=== PATIENT | male | born 1995 | race Caucasian/White ===

== ENCOUNTER 2017-08-04 10:34 | Emergency (ER) | payer OTHER ==
[2017-08-04 10:49] VITALS: BP 123/76; PULSE 67; TEMP 97.8; BMI 37.0
[2017-08-04] MEDS ORDERED: SODIUM CHLORIDE 0.9% 1000 ML INFUS.BAG IV ONE (11:02)
[2017-08-04] MEDS ORDERED: PANTOPRAZOLE SODIUM 40 MG VIAL IVPUSH ONE (11:03)
[2017-08-04] MEDS ORDERED: ONDANSETRON 4 MG/2 ML VIAL IVPB ONE (11:03)
--- NOTE | 2017-08-04 11:06 | PDOC ---
History of Present Illness - General Chief Complaint: Nausea/Vomiting Stated Complaint: NAUSEA/VOMITING Time Seen by Provider: 08/04/17 10:56 History Source: Patient Exam Limitations: No Limitations - History of Present Illness Initial Comments: 08/04/17 11:05 Patient is a [22-year-old male, ambulatory to emergency Department was seen in the emergency department yesterday for nausea vomiting diarrhea with mid abdominal discomfort, labs and CT were performed, results reviewed, no evidence of appendicitis or evidence of acute intra-abdominal pathology. White blood cell count was notably elevated with hypokalemia, otherwise unremarkable Patient was exposed to poorly cooked meat on Sunday and develops symptoms shortly after. While emergency Department was given Zofran, symptoms had seemed to resolve however now returns with increased abdominal pain to midepigastric region, increased vomiting and diarrhea. No fever. Bilious vomiting noted in ER. ] Allergies: No known allergies Medications: [None] Family History: Non-contributory Social History: Smokes Hookah, alcohol use, or IVDU Vital signs on arrival are [notable for pulse of 67.] Review of Systems GENERAL/CONSTITUTIONAL: [No fever or chills. No weakness. No weight change.] HEAD, EYES, EARS, NOSE AND THROAT: [No change in vision. No ear pain or discharge. No sore throat. ] CARDIOVASCULAR: [No chest pain or shortness of breath.] RESPIRATORY: [No cough, wheezing, or hemoptysis.] GASTROINTESTINAL: [Epigastric pain, + nausea, active vomiting, diarrhea or constipation. No rectal bleeding.] GENITOURINARY: [No dysuria, frequency, or change in urination.] MUSCULOSKELETAL: [No joint or muscle swelling or pain. No neck or back pain.] SKIN : [No rash or easy bruising.] NEUROLOGIC: [No headache, vertigo, loss of consciousness, or loss of sensation.] PSYCHIATRIC: [No depression or anxiety.] ENDOCRINE: [No increased thirst. No abnormal weight change.] HEMATOLOGIC/LYMPHATIC: [No anemia, easy bleeding, or history of blood clots.] ALLERGIC/IMMUNOLOGIC: [No hives or skin allergy. No latex allergy.] Physical Exam: GENERAL: [The patient is awake, alert, and fully oriented, in no acute distress. ] EYES: [Pupils equal, round and reactive to light, extraocular movements intact, sclera anicteric, conjunctiva clear.] ENT: [Ears normal, nares patent, oropharynx clear without exudates. Moist mucous membranes. No uvula deviation] NECK: [Normal range of motion, supple without lymphadenopathy, JVD, or masses.] LUNGS: [Breath sounds equal, clear to auscultation bilaterally. No wheezes, and no crackles.] HEART: [Regular rate and rhythm, normal S1 and S2 without murmur, rub or gallop. ] ABDOMEN: [Soft, tender to midepigastric region, normoactive bowel sounds. No guarding, no rebound. No masses. No bruising or abrasions] MUSCULOSKELETAL: [Normal range of motion, no edema. No clubbing or cyanosis. No cords, erythema, or tenderness. No CVA Tenderness with fist palpation.] NEUROLOGICAL: [Cranial nerves II through XII grossly intact. Normal speech, normal gait.] SKIN: [Warm, Dry, normal turgor, no rashes or lesions noted.] Past History - Past Medical History Allergies/Adverse Reactions: Allergies Allergy/AdvReac Type Severity Reaction Status Date / Time No Known Allergies Allergy Verified 08/04/17 10:44 Home Medications: Ambulatory Orders Omeprazole 20 mg PO BID #24 tablet.dr 08/04/17 Ondansetron [Zofran Odt -] 4 mg SL TID #21 od.tablet 08/04/17 COPD: No - Immunization History Immunization Up to Date: Yes - Suicide/Smoking/Psychosocial Hx Smoking History: Never smoked Have you smoked in the past 12 months: No Information on smoking cessation initiated: No Hx Alcohol Use: No Drug/Substance Use Hx: No Substance Use Type: None *Physical Exam - Vital Signs Last Vital Signs Temp Pulse Resp BP Pulse Ox 97.8 F 67 17 123/76 100 08/04/17 10:45 08/04/17 10:45 08/04/17 10:45 08/04/17 10:45 08/04/17 10:45 ED Treatment Course - LABORATORY CBC & Chemistry Diagram: 08/04/17 11:28 08/04/17 11:28 Medical Decision Making - Medical Decision Making 08/04/17 11:15 A/P: Patient here for evaluation of nausea vomiting, diarrhea, mid epigastric pain. Was seen in the emergency department yesterday CT scan of abdomen and pelvis was negative for acute intra-abdominal pathology. White count was significantly elevated with hyperkalemia otherwise unremarkable signs of gastroenteritis versus recent history of eating poorly cooked meat. Plan: CBC, CMP, lipase Normal saline Zofran, Protonix Saline lock 08/04/17 12:29 , White blood cell count is significantly decreased from yesterday Laboratory Results - last 24 hr 08/04/17 08/04/17 08/04/17 11:28 11:28 11:32 WBC 11.9 H RBC 5.32 Hgb 15.0 Hct 44.0 MCV 82.7 MCH 28.2 MCHC 34.0 RDW 12.9 Plt Count 256 MPV 9.1 Neutrophils % 77.9 Lymphocytes % 14.4 Monocytes % 5.3 Eosinophils % 1.9 D Basophils % 0.5 Sodium 141 Potassium 3.4 L Chloride 105 Carbon Dioxide 27 Anion Gap 9 BUN 12 Creatinine 1.0 Creat Clearance w eGFR > 60 Random Glucose 124 H D Calcium 8.7 Total Bilirubin 0.5 AST 33 D ALT 69 Alkaline Phosphatase 96 Total Protein 7.4 Albumin 4.3 Lipase 113 Urine Color Yellow Urine Appearance Slcloudy Urine pH 7.0 Ur Specific [place] 1.020 Urine Protein Negative Urine Glucose (UA) Negative Urine Ketones 1+ H Urine Blood Negative Urine Nitrite Negative Urine Bilirubin Negative Urine Urobilinogen Negative 08/07/17 11:14 Patient reports that he feels better after medication, will DC patient home on omeprazole and Zofran, follow up with PMD in 2 days labs were improved from previous, most likely food poisoning versus gastroenteritis. I discussed the physical exam findings, ancillary test results and final diagnoses with the patient. I answered all of the patient's questions. The patient was satisfied with the care received and felt comfortable with the discharge plan and treatment plan. The patient will call to arrange follow-up and will return to the Emergency Department with any new, persistent or worsening symptoms. *DC/Admit/Observation/Transfer Diagnosis at time of Disposition: Gastroenteritis Food poisoning Qualifiers: Encounter type: initial encounter Injury intent: accidental or unintentional Qualified Code(s): T62.91XA - Toxic effect of unspecified noxious substance eaten as food, accidental (unintentional), initial encounter - Discharge Dispostion Disposition: HOME Condition at time of disposition: Stable Admit: No - Prescriptions Prescriptions: Omeprazole 20 mg PO BID #24 tablet. Ondansetron [Zofran Odt -] 4 mg SL TID #21 od.tablet - Referrals Referrals: Katie Xiao MD [Primary Care Provider] - - Patient Instructions Printed Discharge Instructions: DI for Vomiting -- Adult Additional Instructions: Increase fluids to prevent dehydration, Gatorade, Pedialyte [place] diet, bread, white rice, crackers. Please followup with primary care DrElly in 3 days if symptoms persist Return to emergency department any increased cough, fever, inability to drink or other concerns - Post Discharge Activity Forms/Work/School Notes: Back to Work
[2017-08-04] MEDS ORDERED: ONDANSETRON 4 MG/2 ML VIAL ONE (11:36)
[2017-08-04 11:38] LABS: BASOPHIL 0.5 % (0-2.0); EOSINOPHIL 1.9 % (0-4.5); MCH 28.2 pg (25.7-33.7); MEAN CELL VOLUME 82.7 fl (80-96); MEAN PLT VOLUME 9.1 fl (7.5-11.1); NEUTROPHILS 77.9 % (42.8-82.8); PLATELET COUNT 256 K/MM3 (134-434); RDW 12.9 % (11.9-15.9); WHITE BLOOD COUNT 11.9 K/mm3 (4.0-10.0)
[2017-08-04] MEDS ORDERED: PANTOPRAZOLE SODIUM 40 MG VIAL ONE (11:40)
[2017-08-04 11:44] LABS: URINE APPEARANCE SLCLOUDY; URINE BILIRUBIN NEGATIVE (NEGATIVE); URINE BLOOD NEGATIVE (NEGATIVE); URINE COLOR YELLOW; URINE GLUCOSE (UA) NEGATIVE (NEGATIVE); URINE KETONE 1+ (NEGATIVE); URINE NITRITE NEGATIVE (NEGATIVE); URINE PROTEIN NEGATIVE (NEGATIVE); URINE UROBILINOGEN NEGATIVE mg/dL (0.2-1.0)
[2017-08-04 12:05] LABS: ALBUMIN 4.3 g/dl (3.4-5.0); ANION GAP 9 (8-16); BILIRUBIN,TOTAL 0.5 mg/dL (0.2-1.0); CALCIUM 8.7 mg/dL (8.5-10.1); CO2 27 mmol/L (21-32); GLUCOSE,RANDOM 124 mg/dL (74-106); SGOT/AST 33 U/L (15-37); SGPT/ALT 69 U/L (12-78); TOT PROT 7.4 g/dl (6.4-8.2)
[2017-08-04 12:06] LABS: ALK PHOS 96 U/L (45-117)
[2017-08-04] MEDS ORDERED: MAG HYDROX/AL HYDROX/SIMETH 30 ML UNIT-DOSE CUP PO ONE (13:59)
[2017-08-04] MEDS ORDERED: MAG HYDROX/AL HYDROX/SIMETH 30 ML UNIT-DOSE CUP ONE (14:06)
[2017-08-04 14:08] LABS: URINE LEUK ESTERASE Negative (NEGATIVE)
== END 2017-08-04 15:31 | disposition home or self-care (01) ==
LOC: JER 10:34
DX: K52.9 Noninfective gastroenteritis and colitis, unspecified (principal)
CPT/HCPCS: 36415; 80053; 81003; 83690; 85025; 87086; 99283-25

== ENCOUNTER 2017-08-07 21:18 | Emergency (ER) | payer OTHER ==
[2017-08-07 21:58] VITALS: BMI 37.0
--- NOTE | 2017-08-07 21:59 | PDOC ---
Rapid Medical Evaluation Chief Complaint: Pain Time Seen by Provider: 08/07/17 21:57 Medical Evaluation: Allergies Allergy/AdvReac Type Severity Reaction Status Date / Time No Known Allergies Allergy Verified 08/04/17 10:44 08/07/17 21:57 I have performed a brief in-person evaluation of this patient. The patient presents with a chief complaint of: Severe Epigastric Abdominal Pain Pertinent physical exam findings: Tenderness to Epigastric region I have ordered the following: CBC, BMP, Hepatic Function Profile, UA, U/S Gall Bladder The patient will proceed to the ED for further evaluation. This is patients' 3rd time to ED for Abdominal Pain he reports. Discharge Disposition - Referrals Referrals: Katie Xiao MD [Primary Care Provider] - - Patient Instructions - Post Discharge Activity
[2017-08-07 22:20] LABS: BASOPHIL 0.9 % (0-2.0); EOSINOPHIL 1.3 % (0-4.5); MCH 28.6 pg (25.7-33.7); MEAN CELL VOLUME 81.7 fl (80-96); MEAN PLT VOLUME 9.3 fl (7.5-11.1); NEUTROPHILS 70.5 % (42.8-82.8); PLATELET COUNT 339 K/MM3 (134-434); RDW 12.6 % (11.9-15.9); WHITE BLOOD COUNT 15.4 K/mm3 (4.0-10.0)
[2017-08-07 23:29] LABS: ALBUMIN 4.6 g/dl (3.4-5.0); ALK PHOS 96 U/L (45-117); AMYLASE 49 U/L (25-115); ANION GAP 11 (8-16); BILIRUBIN,DIRECT 0.2 mg/dL (0.0-0.2); BILIRUBIN,TOTAL 0.6 mg/dL (0.2-1.0); CALCIUM 9.4 mg/dL (8.5-10.1); CO2 29 mmol/L (21-32); CREATININE 0.9 mg/dL (0.7-1.3); GLUCOSE,RANDOM 101 mg/dL (74-106); SGOT/AST 21 U/L (15-37); SGPT/ALT 74 U/L (12-78); TOT PROT 7.7 g/dl (6.4-8.2)
[2017-08-08] MEDS ORDERED: PANTOPRAZOLE SODIUM 40 MG in SODIUM CHLORIDE 100 ML IVPB ONE (01:19)
[2017-08-08] MEDS ORDERED: ONDANSETRON 4 MG/2 ML VIAL IVPUSH ONE (01:19)
[2017-08-08] MEDS ORDERED: SODIUM CHLORIDE 1,000 ML IV STA (01:19)
[2017-08-08] MEDS ORDERED: ONDANSETRON 4 MG/2 ML VIAL ONE (01:43)
[2017-08-08] MEDS ORDERED: PANTOPRAZOLE SODIUM 40 MG VIAL ONE (01:43)
[2017-08-08 02:21] LABS: PH,URINE 6.5 (5.0-8.0); URINE APPEARANCE CLEAR; URINE BILIRUBIN 1+ (NEGATIVE); URINE BLOOD TRACE-INTA (NEGATIVE); URINE COLOR LT. YELLOW; URINE GLUCOSE (UA) NEGATIVE (NEGATIVE); URINE KETONE 2+ (NEGATIVE); URINE NITRITE NEGATIVE (NEGATIVE); URINE PROTEIN TRACE (NEGATIVE)
--- NOTE | 2017-08-08 03:29 | PDOC ---
History of Present Illness - General Chief Complaint: Pain Stated Complaint: STOMACH PAIN Time Seen by Provider: 08/07/17 21:57 History Source: Patient, Family Exam Limitations: No Limitations - History of Present Illness Travel History: No Initial Comments: 08/08/17 03:24 22yo Male patient with no significant past medical history presents to ED c/o abdominal pain, n/v/d. Patient was seen on 08-03 and 08-04 at this hospital. Patient was seen at [facility] 08-02 for same symptoms. He returns today with no resolution in abdominal pain, n/v/d. Patient denies CP, back pain , fever, cough, congestion or any other complaints at this time. Timing/Duration: reports: constant. denies: changing over time, intermittent, resolved prior to arrival, gone now, other Quality: reports: moderate, cramping. denies: mild, severe, aching, burning, dullness, fullness, sharpness, stabbing, throbbing, other Abdominal Pain Onset Location: reports: epigastric. denies: RUQ, LUQ, RLQ, LLQ , periumbilical, suprapubic, generalized abdomen, flank, unknown, other Pain Radiation: reports: no radiation. denies: RUQ, LUQ, RLQ, LLQ, epigastric, periumbilical, flank, groin, scapula, shoulder, chest, back, other Activities at Onset: reports: no specific activity. denies: none, exertion, emotional upset, rest, sleep, eating, working, sexual intercourse, other Treatment Prior to Arrive: improves with: analgesics. worse with: antacids, cold pack, heat, laxative, enema, other Past History - Travel Traveled outside of the country in the last 30 days: No Close contact w/someone who was outside of country & ill: No - Past Medical History Allergies/Adverse Reactions: Allergies Allergy/AdvReac Type Severity Reaction Status Date / Time No Known Allergies Allergy Verified 08/04/17 10:44 Home Medications: Ambulatory Orders Famotidine [Pepcid -] 40 mg PO DAILY #30 tablet 08/08/17 Tramadol HCl 50 mg PO Q6H PRN #16 tablet MDD 4 tabs 08/08/17 COPD: No - Immunization History Immunization Up to Date: Yes - Suicide/Smoking/Psychosocial Hx Smoking History: Never smoked Have you smoked in the past 12 months: No Information on smoking cessation initiated: No Hx Alcohol Use: No Drug/Substance Use Hx: No Substance Use Type: None Abd/GI Specific PMHX - Complaint Specific PMHX Colitis: No Diverticulitis: No Gall Bladder Disease: No GERD: No Hepatitis: No Irritable Bowel Synd (IBS): No Pancreatitis: No GI Ulcer Disease: No Review of Systems - Review of Systems Able to Perform ROS?: Yes Is the patient limited Danish proficient: No Constitutional: No: Chills, Fever ABD/GI: Yes: Diarrhea, Nausea, Vomiting, Abdominal cramping (Epigastric) All Other Systems: Reviewed and Negative *Physical Exam - Vital Signs Last Vital Signs Temp Pulse Resp BP Pulse Ox 98.3 F 73 20 147/92 100 08/07/17 21:53 08/07/17 21:53 08/07/17 21:53 08/07/17 21:53 08/07/17 21:53 - Physical Exam General Appearance: Yes: Nourished, Appropriately Dressed, Moderate Distress. No: Apparent Distress, Mild Distress, Severe Distress Neck: positive: Trachea midline, Supple. negative: Normal Thyroid, Rigid, Stridor, Lymphadenopathy (R), Lymphadenopathy (L), Tender lateral Respiratory/Chest: positive: Lungs Clear, Normal Breath Sounds. negative: Chest Tender, Respiratory Distress, Accessory Muscle Use, Labored Respiration, Rapid RR, Paradoxal Breathing, Crackles, Rhonchi, Stridor, Wheezing Cardiovascular: positive: Regular Rhythm, Regular Rate Gastrointestinal/Abdominal: positive: Tender, Soft, Increased Bowel Sounds, Tenderness (Epigastric region.). negative: Normal Bowel Sounds, Distended, Guarding, Rebound, Hernia Rectal Exam: positive: heme negative stool, normal exam Musculoskeletal: positive: Normal Inspection. negative: CVA Tenderness, Decreased Range of Motion, Vertebral Tenderness Extremity: positive: Normal Capillary Refill, Normal Inspection, Normal Range of Motion. negative: Pedal Edema, Swelling, Calf Tenderness, Erythema, Inflammation Integumentary: positive: Normal Color, Dry, Warm Neurologic: positive: school library media specialist II-XII NML intact, Fully Oriented, Alert, Normal Mood/ Affect, Normal Response, Motor Strength 5/5 ED Treatment Course - LABORATORY CBC & Chemistry Diagram: 08/07/17 22:00 08/07/17 21:56 - ADDITIONAL ORDERS Additional order review: Laboratory Results 08/08/17 08/07/17 02:07 21:56 Sodium 138 Potassium 3.3 L Chloride 98 Carbon Dioxide 29 Anion Gap 11 BUN 9 D Creatinine 0.9 Random Glucose 101 Calcium 9.4 Total Bilirubin 0.6 Direct Bilirubin 0.2 AST 21 D ALT 74 Alkaline Phosphatase 96 Total Protein 7.7 Albumin 4.6 Total Amylase 49 Lipase 88 Urine Color Lt. yellow Urine Appearance Clear Urine pH 6.5 Ur Specific [place] 1.025 Urine Protein Trace H Urine Glucose (UA) Negative Urine Ketones 2+ H Urine Blood Trace-inta Urine Nitrite Negative Urine Bilirubin 1+ H Urine Urobilinogen 1.0 08/07/17 22:00 RBC 5.61 H MCV 81.7 MCHC 35.0 RDW 12.6 MPV 9.3 Neutrophils % 70.5 Lymphocytes % 19.4 D Monocytes % 7.9 Eosinophils % 1.3 Basophils % 0.9 - RADIOLOGY Radiology Studies Ordered: Category Date Time Status CHEST CT WITH CONTRAST [CT] Stat CT Scan 08/08/17 01:17 Ordered GALLBLADDER US [US] Stat Ultrasound 08/08/17 21:56 Taken - Medications Given in the ED: ED Medications Discontinued Medications Generic Name Dose Route Start Last Admin Trade Name Freq PRN Reason Stop Dose Admin Pantoprazole Sodium 40 mg/ 100 mls @ 200 mls/hr 08/08/17 01:19 08/08/17 02:08 Sodium Chloride IVPB 08/08/17 01:48 200 mls/hr ONCE ONE Administration Sodium Chloride 1,000 mls @ 1,000 mls/hr 08/08/17 01:19 08/08/17 02:08 Normal Saline - IV 08/08/17 02:18 1,000 mls/hr ASDIR STA Administration Ondansetron HCl 4 mg 08/08/17 01:19 08/08/17 02:08 Zofran Injection IVPUSH 08/08/17 01:20 4 mg ONCE ONE Administration *DC/Admit/Observation/Transfer Diagnosis at time of Disposition: Abdominal pain Qualifiers: Abdominal location: epigastric Qualified Code(s): R10.13 - Epigastric pain - Discharge Dispostion Disposition: HOME Condition at time of disposition: Improved Admit: No - Prescriptions Prescriptions: Famotidine [Pepcid -] 40 mg PO DAILY #30 tablet Tramadol HCl 50 mg PO Q6H PRN #16 tablet MDD 4 tabs PRN Reason: Moderate to Severe Pain - Referrals Referrals: Katie Xiao MD [Primary Care Provider] - William Saini MD [Staff Physician] - - Patient Instructions Printed Discharge Instructions: DI for Abdominal Pain-Adult Additional Instructions: Follow up with Dr. Saini (Gastroenterology) next week, call to schedule appointment. Take medications as prescribed. Do not drive, drink alcohol, or operate heavy machinery while taking Tramadol. Be sure to also follow up with your primary care doctor. Print Language: FRISIAN - Post Discharge Activity
[2017-08-08 05:15] VITALS: BP 140/88; PULSE 70; TEMP 98.2
[2017-08-08 08:57] LABS: URINE LEUK ESTERASE Negative (NEGATIVE)
== END 2017-08-08 05:19 | disposition home or self-care (01) ==
LOC: JER 21:18
PROC: 3E033GC Introduction of Other Therapeutic Substance into Peripheral Vein, Percutaneous Approach (ICD-10-PCS; principal; 2017-08-07)
PROC: 3E033GC Introduction of Other Therapeutic Substance into Peripheral Vein, Percutaneous Approach (ICD-10-PCS; 2017-08-07)
DX: R10.13 Epigastric pain (principal)
CPT/HCPCS: 36415; 71260-TC; 76705-TC; 80048; 80076; 81003; 82150; 83690; 85025; 96365; 96375; 99282-25

== ENCOUNTER 2017-12-13 17:39 | Emergency (ER) | payer OTHER ==
--- NOTE | 2017-12-13 17:53 | PDOC ---
Rapid Medical Evaluation Chief Complaint: Nausea/Vomiting Time Seen by Provider: 12/13/17 17:51 Medical Evaluation: Allergies Allergy/AdvReac Type Severity Reaction Status Date / Time No Known Allergies Allergy Verified 08/04/17 10:44 12/13/17 17:51 I have performed a brief in-person evaluation of this patient. The patient presents with a chief complaint of: abdominal pain since this morning, 7 episodes of vomiting since this morning, 4-5 episodes of diarrhea, subjective fever Pertinent physical exam findings: well appearing I have ordered the following: labs The patient will proceed to the ED for further evaluation. Discharge Disposition - Diagnosis Abdominal pain, Vomiting and diarrhea - Referrals - Patient Instructions - Post Discharge Activity
[2017-12-13 17:55] VITALS: BP 117/82; PULSE 64; TEMP 97.5; BMI 37.0
[2017-12-13 18:43] LABS: BASO % 0.4 % (0-2.0); EOS % 0.1 % (0-4.5); HEMATOCRIT 45.4 % (35.4-49); HEMOGLOBIN 15.6 GM/dL (11.7-16.9); MCH 28.8 pg (25.7-33.7); MCHC 34.4 g/dl (32.0-35.9); MEAN CELL VOLUME 83.9 fl (80-96); MEAN PLT VOLUME 9.8 fl (7.5-11.1); NEUT % 87.5 % (42.8-82.8); PLATELET COUNT 298 K/MM3 (134-434); RBC 5.42 M/mm3 (4.00-5.60); RDW 13.2 % (11.9-15.9); WHITE BLOOD COUNT 13.9 K/mm3 (4.0-10.0)
[2017-12-13 19:07] LABS: ALBUMIN 4.5 g/dl (3.4-5.0); ANION GAP 10 (8-16); BLOOD UREA NITROGEN 13 mg/dL (7-18); CALCIUM 9.4 mg/dL (8.5-10.1); CHLORIDE 104 mmol/L (98-107); CO2 26 mmol/L (21-32); CREATININE 0.8 mg/dL (0.7-1.3); GLUCOSE,RANDOM 145 mg/dL (74-106); POTASSIUM 4.2 mmol/L (3.5-5.1); SGOT/AST 26 U/L (15-37); SGPT/ALT 72 U/L (12-78); SODIUM 140 mmol/L (136-145)
[2017-12-13 19:09] LABS: ALK PHOS 121 U/L (45-117); BILIRUBIN,TOTAL 0.4 mg/dL (0.2-1.0); TOT PROT 7.9 g/dl (6.4-8.2)
--- NOTE | 2017-12-13 19:50 | PDOC ---
History of Present Illness - General History Source: Patient Exam Limitations: No Limitations - History of Present Illness Initial Comments: 12/13/17 20:57 Patient is a 22 year old male with a significant past medical history of GERD, who presents to the ED with complaints of nausea and yellow colored vomiting that began this morning. Patient reports experiencing multiple episodes of nausea and vomiting that began this morning while at home and has shown no signs of subsiding, prompting him to come into the ED for further evaluation. He reports experiencing associated symptoms of diarrhea, stating he's has had 4 episodes of loose watery stool since waking up this morning. Patient states experiencing similar symptoms 4 months ago with all tests being negative. He reports experiencing associated epigastric pain that he states is a 8/10 pain that increases with inspiration. Denies chest pain, Sob. Denies contact with sick individuals, out of state travelling. Denies change in appetite. Denies any other symptoms. Allergies: None Social history: No smoking. No alcohol. No illicit drugs. Surgical history: None PMD:Dr. Katie Xiao. <Juan Chou - Last Filed: 12/13/17 20:57> - General History Source: Patient <Matthew Tomas - Last Filed: 12/13/17 22:23> - General Chief Complaint: Nausea/Vomiting Stated Complaint: NAUSEA/VOMITING Time Seen by Provider: 12/13/17 17:51 Past History <Juan Chou - Last Filed: 12/13/17 20:57> - Past Medical History COPD: No - Immunization History Immunization Up to Date: Yes - Suicide/Smoking/Psychosocial Hx Smoking History: Never smoked Have you smoked in the past 12 months: No Hx Alcohol Use: No Drug/Substance Use Hx: No Substance Use Type: None <Matthew Tomas - Last Filed: 12/13/17 22:23> - Past Medical History Allergies/Adverse Reactions: Allergies Allergy/AdvReac Type Severity Reaction Status Date / Time No Known Allergies Allergy Verified 12/13/17 17:55 Home Medications: Ambulatory Orders Famotidine [Pepcid -] 40 mg PO DAILY #30 tablet 08/08/17 Famotidine [Pepcid] 40 mg PO DAILY #30 tablet 08/08/17 Tramadol HCl 50 mg PO Q6H PRN #16 tablet MDD 4 tabs 08/08/17 Tramadol HCl 50 mg PO Q6H PRN #16 tablet MDD 4 tabs 08/08/17 Ondansetron [Zofran *Odt*] 4 mg SL TID #30 od.tablet 12/13/17 Review of Systems - Review of Systems Able to Perform ROS?: Yes Comments:: 12/13/17 20:57 CONSTITUTIONAL: Absent: fever, no chills, no fatigue EYES: Absent: visual changes ENT: Absent: ear pain, no sore throat CARDIOVASCULAR: Absent: chest pain, no palpitations RESPIRATORY: Absent: cough, no SOB GI: +Epigastric pain, +Nausea. +Vomiting. Absent: no constipation, no diarrhea GENITOURINARY: Absent: dysuria, no frequency, no hematuria MUSCULOSKELETAL: Absent: back pain, no arthralgia, no myalgia SKIN: Absent: rash <Juan Chou - Last Filed: 12/13/17 20:57> *Physical Exam - Vital Signs Last Vital Signs Temp Pulse Resp BP Pulse Ox 97.5 F L 64 18 117/82 100 12/13/17 17:51 12/13/17 17:51 12/13/17 17:51 12/13/17 17:51 12/13/17 17:51 - Physical Exam Comments: 12/13/17 20:57 GENERAL: Well-appearing, well-nourished. No apparent distress. HEENT: Normocephalic, atraumatic. PERRL, EOM intact. CARDIOVASCULAR: Normal S1, S2. Regular rate and rhythm. PULMONARY: Clear to auscultation bilaterally. ABDOMEN: Soft, non-distended, non-tender. EXTREMITIES: Normal ROM in all four extremities. No gross deformities. SKIN: Warm, dry. No rash NEUROLOGICAL: No focal neurological deficits. <Juan Chou - Last Filed: 12/13/17 20:57> - Vital Signs Last Vital Signs Temp Pulse Resp BP Pulse Ox 97.5 F L 64 18 117/82 100 12/13/17 17:51 12/13/17 17:51 12/13/17 17:51 12/13/17 17:51 12/13/17 17:51 <Matthew Tomas - Last Filed: 12/13/17 22:23> ED Treatment Course - LABORATORY CBC & Chemistry Diagram: 12/13/17 18:17 12/13/17 18:17 - ADDITIONAL ORDERS Additional order review: Laboratory Results 12/13/17 12/13/17 18:17 18:17 Sodium 140 Potassium 4.2 D Chloride 104 Carbon Dioxide 26 Anion Gap 10 BUN 13 D Creatinine 0.8 Creat Clearance w eGFR > 60 Random Glucose 145 H D Calcium 9.4 Total Bilirubin 0.4 D AST 26 D ALT 72 Alkaline Phosphatase 121 H D Total Protein 7.9 Albumin 4.5 Lipase 50 L 12/13/17 18:17 RBC 5.42 MCV 83.9 MCHC 34.4 RDW 13.2 MPV 9.8 Neutrophils % 87.5 H D Lymphocytes % 9.0 D Monocytes % 3.0 L Eosinophils % 0.1 D Basophils % 0.4 <Juan Chou - Last Filed: 12/13/17 20:57> - LABORATORY CBC & Chemistry Diagram: 12/13/17 18:17 12/13/17 18:17 - ADDITIONAL ORDERS Additional order review: Laboratory Results 12/13/17 12/13/17 18:17 18:17 Sodium 140 Potassium 4.2 D Chloride 104 Carbon Dioxide 26 Anion Gap 10 BUN 13 D Creatinine 0.8 Creat Clearance w eGFR > 60 Random Glucose 145 H D Calcium 9.4 Total Bilirubin 0.4 D AST 26 D ALT 72 Alkaline Phosphatase 121 H D Total Protein 7.9 Albumin 4.5 Lipase 50 L 12/13/17 18:17 RBC 5.42 MCV 83.9 MCHC 34.4 RDW 13.2 MPV 9.8 Neutrophils % 87.5 H D Lymphocytes % 9.0 D Monocytes % 3.0 L Eosinophils % 0.1 D Basophils % 0.4 <Matthew Tomas - Last Filed: 12/13/17 22:23> Medical Decision Making - Medical Decision Making 12/13/17 22:19 Dr. Tomas: The scribe's documentation has been prepared under my direction and personally reviewed by me in its entirery. I confirm that the note above accurately reflects all work, treatment, procedures, and medical decision making performed by me. patient tolerated by mouth fluid after IVF hydration. Pt will be discharged to follow up with his pcp as needed. Zofran 4mg ODT sent to pharmacy <Matthew Tomas - Last Filed: 12/13/17 22:23> *DC/Admit/Observation/Transfer - Attestations Scribe Attestion: 12/13/17 20:57 Documentation prepared by Juan Chou, acting as certified medical technician assistant for Matthew Tomas MD/DO. <Juan Chou - Last Filed: 12/13/17 20:57> - Discharge Dispostion Admit: No <Matthew Tomas - Last Filed: 12/13/17 22:23> Diagnosis at time of Disposition: Abdominal pain, Vomiting and diarrhea - Discharge Dispostion Disposition: HOME Condition at time of disposition: Stable - Prescriptions Prescriptions: Ondansetron [Zofran *Odt*] 4 mg SL TID #30 od.tablet - Referrals Referrals: Katie Xiao MD [Primary Care Provider] - - Patient Instructions Printed Discharge Instructions: DI for Nausea -- Adult, DI for Vomiting -- Adult Additional Instructions: drink plenty of fluids so you dont become dehydrated. Take medication as directed. - Post Discharge Activity
[2017-12-13] MEDS ORDERED: SODIUM CHLORIDE 1,000 ML IV STA (19:55)
[2017-12-13] MEDS ORDERED: FAMOTIDINE 20 MG/50 ML IVPB 20 MG in PREMIX 50 IVPB ONE (19:55)
[2017-12-13] MEDS ORDERED: ONDANSETRON 4 MG/2 ML VIAL IVPUSH STA (19:55)
[2017-12-13] MEDS ORDERED: FAMOTIDINE 20 MG/50 ML IVPB 20 MG/50 ML MG IVPB ONE (20:54)
[2017-12-13] MEDS ORDERED: ONDANSETRON 4 MG/2 ML VIAL ONE (20:54)
== END 2017-12-13 22:27 | disposition home or self-care (01) ==
LOC: JER 17:39
PROC: 3E033GC Introduction of Other Therapeutic Substance into Peripheral Vein, Percutaneous Approach (ICD-10-PCS; principal; 2017-12-13)
PROC: 3E033GC Introduction of Other Therapeutic Substance into Peripheral Vein, Percutaneous Approach (ICD-10-PCS; 2017-12-13)
DX: R10.10 Upper abdominal pain, unspecified (principal); R11.2 Nausea with vomiting, unspecified; R19.7 Diarrhea, unspecified
CPT/HCPCS: 36415; 80053; 83690; 85025; 99283-25; J7030

== ENCOUNTER 2017-12-14 12:19 | Inpatient (IN) | payer OTHER ==
[2017-12-14 12:33] VITALS: BMI 34.7
--- NOTE | 2017-12-14 12:47 | PDOC ---
History of Present Illness - General Chief Complaint: Pain, Acute Stated Complaint: ABD PAIN Time Seen by Provider: 12/14/17 12:47 - History of Present Illness Initial Comments: 22 year old male with PMH of frequent admission for abdominal pains presenting with abdominal pains and N/V/D. Patient has had multiple episodes of NBNB vomiting/ nausea and non bloody diarrhea with sharp epigastric abdominal pain over the past few days. He was seen in our ED last night with normal labs and sent home with Zofran. He then saw Dr. Barraza this AM and he felt he should come to the ED. He was seen 4 months prior for a similar episode and CT and Ultrasound were negative for gallbladder or abdominal pathology. 12/14/17 13:31 Past History - Past Medical History Allergies/Adverse Reactions: Allergies Allergy/AdvReac Type Severity Reaction Status Date / Time No Known Allergies Allergy Verified 12/14/17 12:30 Home Medications: Ambulatory Orders Ondansetron [Zofran *Odt*] 4 mg SL TID #30 od.tablet 12/13/17 COPD: No - Immunization History Immunization Up to Date: Yes - Suicide/Smoking/Psychosocial Hx Smoking History: Never smoked Have you smoked in the past 12 months: No Information on smoking cessation initiated: No Hx Alcohol Use: No Drug/Substance Use Hx: No Substance Use Type: None Review of Systems - Review of Systems Constitutional: Yes: Loss of Appetite. No: Chills, Diaphoresis, Fever HEENTM: No: Recent change in vision, Double Vision Respiratory: No: Cough, Shortness of Breath Cardiac (ROS): No: Edema, Irregular Heart Rate, Syncope, Chest Tightness ABD/GI: Yes: Nausea, Poor Appetite, Vomiting. No: Abdominal Distended, Constipated : No: Dysuria, Discharge, Frequency Integumentary: No: Bruising, Change in Color, Flushing, Lesions, Lumps Neurological: No: Headache, Numbness, Paresthesia Psychiatric: No: Anxiety, Depression *Physical Exam - Vital Signs Last Vital Signs Temp Pulse Resp BP Pulse Ox 98.3 F 73 16 117/93 98 12/14/17 12:30 12/14/17 12:30 12/14/17 12:30 12/14/17 12:30 12/14/17 12:30 - Physical Exam General Appearance: Yes: Nourished, Appropriately Dressed. No: Apparent Distress HEENT: positive: EOMI, NEW, Normal ENT Inspection, Normal Voice, Symmetrical Neck: positive: Trachea midline, Normal Thyroid, Supple. negative: Tender, Rigid Respiratory/Chest: positive: Lungs Clear, Normal Breath Sounds, Accessory Muscle Use. negative: Chest Tender, Respiratory Distress Cardiovascular: positive: Regular Rhythm, Regular Rate Gastrointestinal/Abdominal: positive: Normal Bowel Sounds, Tender (TTP in epgiastrium), Flat, Soft Extremity: positive: Normal Capillary Refill, Normal Inspection, Normal Range of Motion. negative: Tender Integumentary: positive: Normal Color, Dry, Warm Neurologic: positive: Fully Oriented, Alert, Normal Mood/Affect, Normal Response , Motor Strength 01/12 ED Treatment Course - LABORATORY CBC & Chemistry Diagram: 12/14/17 13:37 12/14/17 13:37 Medical Decision Making - Medical Decision Making 22 year odl non drinking male with multiple episodes of abdominal pain over the past 4 months and previous labs + imaging negative. His n/V/D and abd pain were originally concerning for a viral gastroenteritis given previous negative workup but his lipase returned elevated to 569 (previous levels recorded were WNL) and patient's pain remained despite GI cocktail and fluids. Patient sent to [facility] and admitted to [facility] for pancreatitis with Madi as GI . 12/14/17 15:32 *DC/Admit/Observation/Transfer Diagnosis at time of Disposition: Pancreatitis Qualifiers: Chronicity: acute Pancreatitis type: other Acute pancreatitis complication: unspecified Qualified Code(s): K85.80 - Other acute pancreatitis without necrosis or infection - Discharge Dispostion Condition at time of disposition: Improved Admit: Yes - Referrals - Patient Instructions - Post Discharge Activity
[2017-12-14] MEDS ORDERED: MAG HYDROX/AL HYDROX/SIMETH 30 ML UNIT-DOSE CUP PO ONE (13:31)
[2017-12-14] MEDS ORDERED: LIDOCAINE VISCOUS 2% ORAL/TOP 20 ML UNIT-DOSE CUP MM ONE (13:31)
[2017-12-14] MEDS ORDERED: ONDANSETRON 4 MG/2 ML VIAL IVPUSH ONE (13:31)
[2017-12-14] MEDS ORDERED: MAG HYDROX/AL HYDROX/SIMETH 30 ML UNIT-DOSE CUP ONE (13:32)
[2017-12-14] MEDS ORDERED: ONDANSETRON 4 MG/2 ML VIAL ONE (13:33)
[2017-12-14] MEDS ORDERED: FAMOTIDINE IV 20 MG/12 ML VIAL IVPUSH ONE (13:40)
[2017-12-14] MEDS ORDERED: LIDOCAINE VISCOUS 2% ORAL/TOP 20 ML UNIT-DOSE CUP ONE (13:40)
[2017-12-14] MEDS ORDERED: FAMOTIDINE 20 MG/50 ML IVPB 20 MG/50 ML MG IVPB ONE (13:42)
[2017-12-14 14:04] LABS: HEMATOCRIT 45.2 % (35.4-49); HEMOGLOBIN 15.5 GM/dL (11.7-16.9); MCH 28.8 pg (25.7-33.7); MCHC 34.2 g/dl (32.0-35.9); MEAN CELL VOLUME 84.2 fl (80-96); MEAN PLT VOLUME 9.9 fl (7.5-11.1); PLATELET COUNT 279 K/MM3 (134-434); RBC 5.37 M/mm3 (4.00-5.60); RDW 13.5 % (11.9-15.9); WHITE BLOOD COUNT 12.5 K/mm3 (4.0-10.0)
[2017-12-14 14:19] LABS: ALBUMIN 4.4 g/dl (3.4-5.0); AMYLASE 123 U/L (25-115); ANION GAP 8 (8-16); BLOOD UREA NITROGEN 14 mg/dL (7-18); CALCIUM 9.5 mg/dL (8.5-10.1); CHLORIDE 104 mmol/L (98-107); CO2 29 mmol/L (21-32); CREATININE 0.8 mg/dL (0.7-1.3); GLUCOSE,RANDOM 112 mg/dL (74-106); POTASSIUM 3.8 mmol/L (3.5-5.1); SGOT/AST 30 U/L (15-37); SGPT/ALT 66 U/L (12-78); SODIUM 141 mmol/L (136-145)
[2017-12-14 14:21] LABS: ALK PHOS 114 U/L (45-117); BILIRUBIN,TOTAL 0.5 mg/dL (0.2-1.0); LIPASE 569 U/L (73-393); TOT PROT 7.8 g/dl (6.4-8.2)
[2017-12-14] MEDS ORDERED: morphine CARPU-JECT 2 MG/1 ML DISP.SYRIN IVPUSH ONE (14:36)
--- NOTE | 2017-12-14 14:36 | PDOC ---
Attending Attestation - Resident Resident Name: Gilda An - ED Attending Attestation I have performed the following: I have examined & evaluated the patient, The case was reviewed & discussed with the resident, I agree w/resident's findings & plan, Exceptions are as noted - HPI HPI: 12/14/17 14:34 The patient is a 22 year old male with no significant past medical history who returns to the ED for one day of epigastric pain. He was seen in the ED last night for the epigastric pain with nausea, NBNB vomiting, and loose stools. Epigastric pain does not radiate to the back. CBC and CMP were obtained in the ED and he was discharged home with PO Zofran after he felt better. He returns to the ED today for persistence of his symptoms. He states he was not yet able to fill his Zofran prescription. He does report experiencing intermittent abdominal pain for the past four months. Was at Dr. Barraza's office today but sent to ED for vomiting. No fever or chills. No chest pain or shortness of breath. - Physicial Exam PE: 12/14/17 14:35 "GENERAL: Awake, alert, and fully oriented, in no acute distress HEAD: No signs of trauma EYES: PERRLA, EOMI, sclera anicteric, conjunctiva clear ENT: Auricles normal inspection, hearing grossly normal, nares patent, oropharynx clear without exudates. Moist mucosa NECK: Nontender, no stepoffs, Normal ROM, supple, no lymphadenopathy, JVD, or masses LUNGS: Breath sounds equal, clear to auscultation bilaterally. No wheezes, and no crackles HEART: Regular rate and rhythm, normal S1 and S2, no murmurs, rubs or gallops ABDOMEN: + epigastric TTP, normoactive bowel sounds. No guarding, no rebound. No masses EXTREMITIES: Normal range of motion, no edema. No clubbing or cyanosis. No cords, erythema, or tenderness NEUROLOGICAL: Cranial nerves II through XII intact. 5/5 strength and sensation in all extremities, Normal speech, normal gait, normal cerebellar function SKIN: Warm, Dry, normal turgor, no rashes or lesions noted. " - Medical Decision Making 12/14/17 14:35 22 M with epigastric pain. Suspect gastritis. Pt was seen here yesterday and had normal labs. - Labs - GI cocktail - Reassess 12/14/17 14:54 Lipase elevated >500, consistent with acute pancreatitis. Will order RUQ nasreeno at this time. Admit to Dr. Gómez
[2017-12-14] MEDS ORDERED: morphine SULFATE 4 MG/ML VIAL ONE ×2 (14:53→16:03)
[2017-12-14 15:09] LABS: CHOLESTEROL 152 mg/dL (50-200); TRIGLYCERIDES 117 mg/dL (35-160)
[2017-12-14] MEDS ORDERED: morphine CARPU-JECT 4 MG/1 ML DISP.SYRIN IVPUSH ONE (15:59)
--- NOTE | 2017-12-14 16:51 | CON.GI ---
Consult Consult Specialty:: GI: Dr. Isbell for Dr. David Referred by:: Dr. Gómez Reason for Consultation:: Abdominal pain, nausea/vomiting - History of Present Illness Chief Complaint: N/V/D and abdominal pain History of Present Illness: 22M admitted through [facility] ER for evaluation of N/V/D and abdominal pain. He states that his problems started yesterday, was intermittent in nature. It persisted, saw Dr. David in office where Gi vomited and was sent to the ER. Triage vitals signs were stable. he was not febrile, tachycardic or hypotensive. The vomiting was described as non-bloody, bilious at times. The diarrhea was described as loose non-bloody stool. Similar symptoms occurred in 07/27 that led to an ER visit at [facility]. w/u included blood work that revealed a mild leukocytosis, contrast CT scan of the abdomen that revealed only fatty liver (a diagnosis Gi is aware of since age 15. He has lost 30 pounds intentionally due to this) and an abdominal US that revealed fatty liver and normal biliary tract. He denies recent travel, sick contacts, change in diet, abx use, fevers/chills. He thinks he may have had another episode like this 3 years ago. Upon discussing further, Gi smoked 4-5 Marijuana Joints daily and warm showers seem to improve his symptoms. There is no family history of colorectal cancer / IBD. His last episode of vomiting was this morning when he saw Dr. David. - History Source History Provided By: Patient Limitations to Obtaining History: No Limitations - Past Medical History Hepatobiliary: Yes: Other (Fatty Liver) - Past Surgical History Additional Surgical History: Denies - Alcohol/Substance Use Hx Alcohol Use: Yes (1-2 shots per week) History of Substance Use: reports: Marijuana (4-5 joints per day) - Smoking History Smoking history: Never smoked Have you smoked in the past 12 months: No - Social History Usual Living Arrangement: Other (With family) Place of : [facility] History of Recent Travel: No Home Medications - Allergies Allergies/Adverse Reactions: Allergies Allergy/AdvReac Type Severity Reaction Status Date / Time No Known Allergies Allergy Verified 12/14/17 12:30 - Home Medications Home Medications: Ambulatory Orders Ondansetron [Zofran *Odt*] 4 mg SL TID #30 od.tablet 12/13/17 Family Disease History - Family Disease History Family Disease History: Other: Father (Alive: Heavy ETOH consumption), Mother ( Alive: healthy), Sister (3, healthy), Son (None), Daughter (None) Other Family History: No family history of colorectal cancer or other GI malignancy Review of Systems - Review of Systems Constitutional: reports: Diaphoresis. denies: Chills, Fever, Loss of Appetite Cardiovascular: denies: Chest Pain, Palpitations, Shortness of Breath Respiratory: denies: Cough, SOB Gastrointestinal: reports: Abdominal Pain, Diarrhea, Nausea, Vomiting. denies: Constipation, Dysphagia, Melena, Rectal Bleeding, Vomiting Blood Physical Exam-GI Vital Signs: Vital Signs Temperature 98.4 F 12/14/17 16:08 Pulse Rate 78 12/14/17 16:08 Respiratory Rate 17 12/14/17 16:08 Blood Pressure 127/83 12/14/17 16:08 O2 Sat by Pulse Oximetry (%) 98 12/14/17 16:08 Constitutional: Yes: Calm Eyes: No: Sclera Icterus Cardiovascular: Yes: Regular Rate and Rhythm. No: Murmur Respiratory: Yes: CTA Bilaterally Gastrointestinal Inspection: No: Distention, Scars ...Auscultate: Yes: Normoactive Bowel Sounds ...Palpate: Yes: Soft, Tenderness (Mild TTP mid abdomen). No: Guarding, Hepatomegaly, Splenomegaly ...Percussion: No: Tympanitic ...Rectal Exam: Yes: Other (Refused by patient) Edema: No (No LE edema) Neurological: Yes: Alert, Oriented (x3) Labs: CBC, BMP 12/14/17 13:37 12/14/17 13:37 Hepatic Panel Total Bilirubin 0.5 mg/dL (0.2-1.0) D 12/14/17 13:37 AST 30 U/L (15-37) 12/14/17 13:37 ALT 66 U/L (12-78) 12/14/17 13:37 Alkaline Phosphatase 114 U/L (45-117) 12/14/17 13:37 Albumin 4.4 g/dl (3.4-5.0) 12/14/17 13:37 Laboratory Tests 12/14/17 13:37 Triglycerides 117 Total Amylase 123 H D Lipase 569 H Imaging - Results Ultrasound: Report Reviewed (Fatty liver with normal GB and biliary tract) Problem List - Problems (1) Vomiting and diarrhea Assessment/Plan: 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 Leonard's episodic bouts of his symptoms. He currently is much improved clinically and is hungry. His amylase and lipase are minimally elevated (ULN 115 and 393 respectively in this lab) and this is likely not an episode of acute pancreatitis. The amylase and lipase may reflect his persistent nausea and vomiting. Plan as follows: - Protonix 40mg once daily for now and for 1 week - Reglan 10mg IVPB TID PRN - In terms of further imaging given age and recent CT of abdomen / prior x-rays and CT of head, would try to defer further radiation exposure. Ordered MRI/MRCP of abdomen to assess pancreatic parenchyma / eval for the unlikely diagnosis of pancreas divisum. - Clear liquids - Stool studies ordered if diarrhea persists - Counseled Gi regarding his need to quit cannibis use. he does not want his family knowing about his use or that this could be a potential cause of his symptoms. - Advised avoidance of alcohol, Continued weight loss through meaningful exercise / dietary changes given findings of fatty liver Follow-up with Dr. David upon discharge Code(s): R11.10 - VOMITING, UNSPECIFIED; R19.7 - DIARRHEA, UNSPECIFIED
[2017-12-14] MEDS ORDERED: METOCLOPRAMIDE HCL INJECTION 10 MG/2 ML VIAL IVPB PRN (17:08)
[2017-12-14] MEDS ORDERED: SODIUM CHLORIDE 1,000 ML IV SCH (17:15)
--- NOTE | 2017-12-14 18:15 | HP ---
Admitting History and Physical - Admission History of Present Illness: 22 y/o M admitted through [facility] ER for evaluation of N/V/D and abdominal pain. He states that his problems started yesterday, was intermittent in nature. It persisted, saw Dr. David in office where Gi vomited and was sent to the ER. Triage vitals signs were stable. He has not be febrile, tachycardic or hypotensive. The vomiting was described as non-bloody, bilious at times. The diarrhea was described as loose non-bloody stool. Similar symptoms occurred in 07/27 that led to an ER visit at [facility]. w/u included blood work that revealed a mild leukocytosis, contrast CT scan of the abdomen that revealed only fatty liver (a diagnosis Gi is aware of since age 15), He has lost 30 pounds intentionally due to this, and an abdominal US that revealed fatty liver and normal biliary tract. He denies recent travel, sick contacts, change in diet, abx use, fevers/chills. He thinks he may have had another episode like this 3 years ago. Upon discussing further, Gi smoked 4-5 Marijuana Joints daily and warm showers seem to improve his symptoms. There is no family history of colorectal cancer / IBD. His last episode of vomiting was this morning when he saw Dr. David. History Source: Patient, Medical Record Limitations to Obtaining History: No Limitations - Past Medical History Gastrointestinal: Yes: Pancreatitis (possibly on last admission) Hepatobiliary: Yes: Other (Fatty Liver) - Smoking History Smoking history: Never smoked Have you smoked in the past 12 months: No - Alcohol/Substance Use Hx Alcohol Use: Yes (1-2 shots per week) History of Substance Use: reports: Marijuana (4-5 joints per day) - Social History Usual Living Arrangement: Yes: With Spouse History of Recent Travel: No Home Medications - Allergies Allergies/Adverse Reactions: Allergies Allergy/AdvReac Type Severity Reaction Status Date / Time No Known Allergies Allergy Verified 12/14/17 12:30 - Home Medications Home Medications: Ambulatory Orders Ondansetron [Zofran *Odt*] 4 mg SL TID #30 od.tablet 12/13/17 Family Disease History - Family Disease History Family Disease History: Other: Father (Alive: Heavy ETOH consumption), Mother ( Alive: healthy), Sister (3, healthy), Son (None), Daughter (None) Other Family History: No family history of colorectal cancer or other GI malignancy Review of Systems - Review of Systems Constitutional: denies: Chills, Fever, Loss of Appetite Eyes: reports: No Symptoms HENT: reports: No Symptoms Neck: reports: No Symptoms Cardiovascular: reports: No Symptoms Respiratory: reports: No Symptoms Gastrointestinal: reports: Abdominal Pain, Nausea, Vomiting Genitourinary: reports: No Symptoms Breasts: reports: No Symptoms Reported Musculoskeletal: reports: No Symptoms Integumentary: reports: No Symptoms Neurological: reports: No Symptoms Endocrine: reports: No Symptoms Hematology/Lymphatic: reports: No Symptoms Psychiatric: reports: No Symptoms Physical Examination Vital Signs: Vital Signs Temperature 98.4 F 12/14/17 16:08 Pulse Rate 78 12/14/17 16:08 Respiratory Rate 17 12/14/17 16:08 Blood Pressure 127/83 12/14/17 16:08 O2 Sat by Pulse Oximetry (%) 98 12/14/17 16:08 Findings/Remarks: patient states feeling much better - due to pain meds No Nausea / no vomiting on exam remains tender in epigastric area / no rebound Constitutional: Yes: Well Nourished, No Distress, Calm Eyes: Yes: Conjunctiva Clear, EOM Intact HENT: Yes: Atraumatic, Normocephalic Neck: Yes: Supple, Trachea Midline Cardiovascular: Yes: Regular Rate and Rhythm Respiratory: Yes: Regular, CTA Bilaterally Gastrointestinal: Yes: Normal Bowel Sounds, Tenderness, Epigastrium. No: Vomiting ...Rectal Exam: Yes: Deferred Renal/: Yes: WNL Breast(s): Yes: WNL Musculoskeletal: Yes: WNL Extremities: Yes: WNL Edema: No Peripheral Pulses WNL: Yes Integumentary: Yes: WNL Neurological: Yes: WNL ...Motor Strength: WNL Labs: CBC, BMP 12/14/17 13:37 12/14/17 13:37 Problem List - Problems (1) Pancreatitis Code(s): K85.90 - ACUTE PANCREATITIS WITHOUT NECROSIS OR INFECTION, UNSP Qualifiers: Chronicity: acute Pancreatitis type: other Acute pancreatitis complication: unspecified Qualified Code(s): K85.80 - Other acute pancreatitis without necrosis or infection (2) Abdominal pain Code(s): R10.9 - UNSPECIFIED ABDOMINAL PAIN (3) Vomiting and diarrhea Code(s): R11.10 - VOMITING, UNSPECIFIED; R19.7 - DIARRHEA, UNSPECIFIED (4) Fatty (change of) liver, not elsewhere classified Code(s): K76.0 - FATTY (CHANGE OF) LIVER, NOT ELSEWHERE CLASSIFIED Assessment/Plan # pancreatitis IV fluids / pain management start clear fluid diet trend lipase / CMP / cbc u/s neg for Gall stones Gi follow up # Fatty liver Has GI follow up Known hx
[2017-12-14 19:41] LABS: COCAINE, UR NEGATIVE ng/ml (CUTOFF=300); METHADONE, UR NEGATIVE ng/ml (CUTOFF=300); PHENCYCLIDINE,URINE NEGATIVE ng/ml (CUTOFF=25); URINE AMPHETAMINES NEGATIVE ng/ml (CUTOFF=500); URINE BARBITURATES NEGATIVE ng/ml (CUTOFF=200); URINE BENZODIAZEPINES NEGATIVE ng/ml (CUTOFF=200)
[2017-12-14 19:46] LABS: HDL CHOLESTEROL 40 mg/dL (40-60); LDL CHOLESTEROL (ONLY SJRH) 99 mg/dL (5-100)
[2017-12-14 19:47] LABS: OPIATES, URI POSITIVE ng/ml (CUTOFF=300)
[2017-12-14] MEDS: SODIUM CHLORIDE 1,000 ML IV SCH (20:30)
[2017-12-15] MEDS: SODIUM CHLORIDE 1,000 ML IV SCH ×3 (00:05→15:15)
[2017-12-15] MEDS ORDERED: ONDANSETRON 4 MG/2 ML VIAL IVPUSH PRN (10:42)
[2017-12-15] MEDS ORDERED: morphine SULFATE 4 MG/ML VIAL IVPUSH ONE (11:00)
[2017-12-15] MEDS ORDERED: ONDANSETRON 4 MG/2 ML VIAL IVPUSH ONE (11:00)
[2017-12-15] MEDS: PANTOPRAZOLE 40 MG TABLET (FP) PO SCH (11:51)
[2017-12-15 12:07] LABS: ALBUMIN 3.8 g/dl (3.4-5.0); ANION GAP 9 (8-16); BLOOD UREA NITROGEN 9 mg/dL (7-18); CALCIUM 8.4 mg/dL (8.5-10.1); CHLORIDE 103 mmol/L (98-107); CO2 26 mmol/L (21-32); GLUCOSE,RANDOM 109 mg/dL (74-106); LIPASE 65 U/L (73-393); POTASSIUM 3.5 mmol/L (3.5-5.1); SGOT/AST 25 U/L (15-37); SGPT/ALT 68 U/L (12-78); SODIUM 138 mmol/L (136-145)
[2017-12-15 12:10] LABS: ALK PHOS 96 U/L (45-117); BILIRUBIN,TOTAL 0.4 mg/dL (0.2-1.0); CREATININE 0.7 mg/dL (0.7-1.3); TOT PROT 7.1 g/dl (6.4-8.2)
--- NOTE | 2017-12-15 12:31 | PN ---
Progress Note (short form) - Note Progress Note: seen and examined c/o epigastric pain early this am and then again late afternoon required pain meds + tenderness on exam + nausea - no vomiting Vital Signs Period Temp Pulse Resp BP Sys/Melgar Pulse Ox Last 24 Hr 97.9 F-98.8 F 64-88 16-18 107-139/50-93 98-98 neck - supple heart reg S1/S2 Lungs clear bilat abd BS+ /epigastic guarding / tenderness otherwise benign abd ext FROM - CCE Am labs pending MRCP awaiting official report U/S negative for CBD dilation or gall stones admitted with lipase > 500 Active Medications Sodium Chloride (Normal Saline -) 1,000 mls @ 200 mls/hr IV ASDIR ADELSO Last Admin: 12/15/17 09:13 Dose: 200 mls/hr Metoclopramide HCl (Reglan Injection -) 10 mg IVPB Q8H PRN PRN Reason: NAUSEA AND/OR VOMITING Last Admin: 12/15/17 04:05 Dose: 10 mg Ondansetron HCl (Zofran Injection) 4 mg IVPUSH Q4H PRN PRN Reason: NAUSEA AND/OR VOMITING Pantoprazole Sodium (Protonix -) 40 mg PO DAILY ADELSO Stop: 12/22/17 09:59 Last Admin: 12/15/17 11:51 Dose: 40 mg # pancreatitis continue with IV fluids pain management clear liquid diet follow labs follow up with GI # Cyclic vomiting syndrome associated with Chronic Marijuana use ? has had previous similar / milder episodes # Fatty Liver Known Hx followed as out patient Problem List - Problems (1) Pancreatitis Code(s): K85.90 - ACUTE PANCREATITIS WITHOUT NECROSIS OR INFECTION, UNSP Qualifiers: Chronicity: acute Pancreatitis type: other Acute pancreatitis complication: unspecified Qualified Code(s): K85.80 - Other acute pancreatitis without necrosis or infection (2) Cyclic vomiting syndrome Code(s): G43.A0 - CYCLICAL VOMITING, NOT INTRACTABLE Qualifiers: Vomiting Intractability: non-intractable Nausea presence: with nausea Qualified Code(s): G43.A0 - Cyclical vomiting, not intractable (3) Abdominal pain Code(s): R10.9 - UNSPECIFIED ABDOMINAL PAIN Qualifiers: Abdominal location: epigastric Qualified Code(s): R10.13 - Epigastric pain (4) Vomiting and diarrhea Code(s): R11.10 - VOMITING, UNSPECIFIED; R19.7 - DIARRHEA, UNSPECIFIED (5) Fatty (change of) liver, not elsewhere classified Code(s): K76.0 - FATTY (CHANGE OF) LIVER, NOT ELSEWHERE CLASSIFIED
--- NOTE | 2017-12-15 15:56 | PN ---
GI Progress Note Subjective: tolerating clears no pain loose bm mri done not read - Objective Vital Signs: Vital Signs Temperature 98.2 F 12/15/17 14:50 Pulse Rate 75 12/15/17 14:50 Respiratory Rate 18 12/15/17 14:50 Blood Pressure 109/53 12/15/17 14:50 O2 Sat by Pulse Oximetry (%) 98 12/14/17 21:00 Constitutional: Calm Eyes: No: Sclera Icterus Cardiovascular: Yes: Regular Rate and Rhythm Respiratory: Yes: CTA Bilaterally ...Auscultate: Yes: Normoactive Bowel Sounds ...Palpate: No: Hepatomegaly, Splenomegaly, Tenderness ...Percussion: No: Tympanitic Edema: No (no le edema) Neurological: Yes: Alert, Oriented Labs: CBC, BMP 12/14/17 13:37 12/15/17 11:05 Laboratory Tests 12/15/17 11:05 Lipase 65 L Hepatic Panel Total Bilirubin 0.4 mg/dL (0.2-1.0) 12/15/17 11:05 AST 25 U/L (15-37) 12/15/17 11:05 ALT 68 U/L (12-78) 12/15/17 11:05 Alkaline Phosphatase 96 U/L (45-117) 12/15/17 11:05 Albumin 3.8 g/dl (3.4-5.0) 12/15/17 11:05 Problem List - Problems (1) Vomiting and diarrhea Assessment/Plan: Suspected cannabis induced hyperemesis advance diet await mrcp d/c fluids Code(s): R11.10 - VOMITING, UNSPECIFIED; R19.7 - DIARRHEA, UNSPECIFIED
[2017-12-16 07:25] LABS: BASO % 0.7 % (0-2.0); EOS % 2.6 % (0-4.5); HEMATOCRIT 43.3 % (35.4-49); HEMOGLOBIN 15.1 GM/dL (11.7-16.9); LYMPH % 31.5 % (8-40); MCH 29.2 pg (25.7-33.7); MCHC 34.8 g/dl (32.0-35.9); MEAN CELL VOLUME 83.7 fl (80-96); MEAN PLT VOLUME 9.4 fl (7.5-11.1); MONO % 8.1 % (3.8-10.2); NEUT % 57.1 % (42.8-82.8); PLATELET COUNT 244 K/MM3 (134-434); RBC 5.18 M/mm3 (4.00-5.60); WHITE BLOOD COUNT 10.1 K/mm3 (4.0-10.0)
[2017-12-16 08:04] LABS: ANION GAP 10 (8-16); BLOOD UREA NITROGEN 11 mg/dL (7-18); CALCIUM 9.1 mg/dL (8.5-10.1); CHLORIDE 103 mmol/L (98-107); CO2 29 mmol/L (21-32); CREATININE 0.9 mg/dL (0.7-1.3); GLUCOSE,RANDOM 80 mg/dL (74-106); LIPASE 79 U/L (73-393); POTASSIUM 3.9 mmol/L (3.5-5.1); SGOT/AST 24 U/L (15-37); SGPT/ALT 69 U/L (12-78); SODIUM 142 mmol/L (136-145)
[2017-12-16 08:06] LABS: ALK PHOS 93 U/L (45-117); BILIRUBIN,TOTAL 0.7 mg/dL (0.2-1.0); TOT PROT 7.2 g/dl (6.4-8.2)
[2017-12-16] MEDS ORDERED: SODIUM CHLORIDE 1,000 ML IV SCH (10:30)
[2017-12-16] MEDS ORDERED: morphine SULFATE 4 MG/ML VIAL IVPUSH ONE (10:30)
[2017-12-16 10:34] VITALS: PULSE 84
[2017-12-16] MEDS: PANTOPRAZOLE 40 MG TABLET (FP) PO SCH (10:46)
[2017-12-16] MEDS ORDERED: MAGNESIUM CITRATE 300 ML BOTTLE PO ONE (11:30)
--- NOTE | 2017-12-16 12:12 | PN ---
Progress Note (short form) - Note Progress Note: seen and examined c/o epigastric pain early this am ++ bilious vomiting associated with pain has remained on full liquid diet admits "hungry " -- wants regualr meal required pain meds this am now pain free No tenderness on exam Vital Signs Period Temp Pulse Resp BP Sys/Melgar Pulse Ox Last 24 Hr 97.6 F-98.2 F 63-84 18-20 109-131/53-84 98 neck - supple heart reg S1/S2 Lungs clear bilat abd BS+ /no tenderness or guarding ext FROM - CCE MRCP awaiting official report U/S negative for CBD dilation or gall stones admitted with lipase > 500 now NL Active Medications Sodium Chloride (Normal Saline -) 1,000 mls @ 200 mls/hr IV ASDIR ADELSO Last Admin: 12/15/17 09:13 Dose: 200 mls/hr Metoclopramide HCl (Reglan Injection -) 10 mg IVPB Q8H PRN PRN Reason: NAUSEA AND/OR VOMITING Last Admin: 12/15/17 04:05 Dose: 10 mg Ondansetron HCl (Zofran Injection) 4 mg IVPUSH Q4H PRN PRN Reason: NAUSEA AND/OR VOMITING Pantoprazole Sodium (Protonix -) 40 mg PO DAILY ADELSO Stop: 12/22/17 09:59 Last Admin: 12/15/17 11:51 Dose: 40 mg # Cyclic vomiting Syndrome associated to chronic Marijuana use ( which he admits) has had previous episodes - none as "bad as this one " counseled on abstinence of Marijuana supportive treatment given IV fluids / Zofran / MS for pain / will advance diet will d/c once tolerating PO # pancreatitis resolved clear liquid diet advance to regular Labs normalized follow up with GI Problem List - Problems (1) Pancreatitis Code(s): K85.90 - ACUTE PANCREATITIS WITHOUT NECROSIS OR INFECTION, UNSP Qualifiers: Chronicity: acute Pancreatitis type: other Acute pancreatitis complication: unspecified Qualified Code(s): K85.80 - Other acute pancreatitis without necrosis or infection (2) Abdominal pain Code(s): R10.9 - UNSPECIFIED ABDOMINAL PAIN (3) Vomiting and diarrhea Code(s): R11.10 - VOMITING, UNSPECIFIED; R19.7 - DIARRHEA, UNSPECIFIED (4) Fatty (change of) liver, not elsewhere classified Code(s): K76.0 - FATTY (CHANGE OF) LIVER, NOT ELSEWHERE CLASSIFIED
[2017-12-16 14:10] VITALS: BP 125/63; TEMP 98.2
--- NOTE | 2017-12-16 14:15 | PN ---
GI Progress Note Subjective: Vomited this monring. Ate breakfast and lunch without a problem No abdominal pain + Constipation MRI reviewed with Dr. Gonzalez: no evidence pf pancreatitis and could not visualize entire pancreatic duct. - Objective Vital Signs: Vital Signs Temperature 98.2 F 12/16/17 14:09 Pulse Rate 84 12/16/17 14:09 Respiratory Rate 20 12/16/17 14:09 Blood Pressure 125/63 12/16/17 14:09 O2 Sat by Pulse Oximetry (%) 98 12/15/17 21:00 Constitutional: Calm Eyes: Yes: Sclera Icterus Cardiovascular: Yes: Regular Rate and Rhythm Respiratory: Yes: CTA Bilaterally ...Auscultate: Yes: Normoactive Bowel Sounds ...Palpate: No: Tenderness ...Percussion: No: Tympanitic Edema: No (No LE edema) Neurological: Yes: Alert, Oriented Labs: CBC, BMP 12/16/17 07:05 12/16/17 07:05 Hepatic Panel Total Bilirubin 0.7 mg/dL (0.2-1.0) D 12/16/17 07:05 AST 24 U/L (15-37) 12/16/17 07:05 ALT 69 U/L (12-78) 12/16/17 07:05 Alkaline Phosphatase 93 U/L (45-117) 12/16/17 07:05 Albumin 4.0 g/dl (3.4-5.0) 12/16/17 07:05 Problem List - Problems (1) Vomiting and diarrhea Assessment/Plan: No clinical, serologic or radiographic of acute pancreatitis Suspect Cannabis induced hyperemesis Tolerating PO Follow-up as outpatient w/ / Frankie Code(s): R11.10 - VOMITING, UNSPECIFIED; R19.7 - DIARRHEA, UNSPECIFIED
--- NOTE | 2017-12-16 16:03 | DS ---
Physical Examination Vital Signs: Vital Signs Temperature 98.2 F 12/16/17 14:09 Pulse Rate 84 12/16/17 14:09 Respiratory Rate 20 12/16/17 14:09 Blood Pressure 125/63 12/16/17 14:09 O2 Sat by Pulse Oximetry (%) 98 12/16/17 09:00 Findings/Remarks: 22 y/o M admitted through [facility] ER for evaluation of N/V/D and abdominal pain. He states that his problems started yesterday, was intermittent in nature. It persisted, saw Dr. David in office where Gi vomited and was sent to the ER. Triage vitals signs were stable. He has not be febrile, tachycardic or hypotensive. The vomiting was described as non-bloody, bilious at times. The diarrhea was described as loose non-bloody stool. Similar symptoms occurred in 07/27 that led to an ER visit at [facility]. w/u included blood work that revealed a mild leukocytosis, contrast CT scan of the abdomen that revealed only fatty liver (a diagnosis Gi is aware of since age 15), He has lost 30 pounds intentionally due to this, and an abdominal US that revealed fatty liver and normal biliary tract. He denies recent travel, sick contacts, change in diet, abx use, fevers/chills. He thinks he may have had another episode like this 3 years ago. Upon discussing further, Gi smoked 4-5 Marijuana Joints daily and warm showers seem to improve his symptoms. There is no family history of colorectal cancer / IBD. His last episode of vomiting was this morning when he saw Dr. David. MRCP -- no evidence of pancreatitis / gall stones or obstruction Lipase / labs normalized # Cyclic vomiting Syndrome associated to chronic Marijuana use ( which he admits) has had previous episodes - none as "bad as this one " counseled on abstinence of Marijuana supportive treatment given IV fluids / Zofran / MS for pain / will advance diet will d/c once tolerating PO # pancreatitis resolved clear liquid diet advance to regular Labs normalized follow up with GI Constitutional: Yes: Well Nourished, No Distress, Calm Eyes: Yes: Conjunctiva Clear, EOM Intact HENT: Yes: Atraumatic, Normocephalic Neck: Yes: Supple, Trachea Midline Cardiovascular: Yes: Regular Rate and Rhythm Respiratory: Yes: Regular, CTA Bilaterally Gastrointestinal: Yes: Normal Bowel Sounds, Soft ...Rectal Exam: Yes: Deferred Renal/: Yes: WNL Breast(s): Yes: WNL Musculoskeletal: Yes: WNL Extremities: Yes: WNL Edema: No Peripheral Pulses WNL: Yes Integumentary: Yes: WNL Neurological: Yes: WNL, Alert, Oriented ...Motor Strength: WNL Psychiatric: Yes: WNL, Alert, Oriented Labs: CBC, BMP 12/16/17 07:05 12/16/17 07:05 Discharge Summary Reason For Visit: PANCREATITIS Current Active Problems Cyclic vomiting syndrome (Acute) Fatty (change of) liver, not elsewhere classified (Acute) Pancreatitis (Acute) Condition: Improved - Instructions Referrals: Katie Xiao MD [Primary Care Provider] - Yomi David MD [Staff Physician] - - Home Medications Comprehensive Discharge Medication List: Ambulatory Orders Ondansetron [Zofran Odt -] 4 mg SL TID #30 od.tablet 12/13/17
== END 2017-12-16 16:53 | disposition home or self-care (01) | DRG 282 ==
LOC: SUPCPDRO 12:19 → JER 12:19 → JERBED 15:07 → J5S 17:09
PROVIDERS: ADMIT Family Medicine; ATTEND Family Medicine
DX: K85.90 Acute pancreatitis without necrosis or infection, unspecified (principal); K76.0 Fatty (change of) liver, not elsewhere classified; G43.A0 Cyclical vomiting, in migraine, not intractable; R19.7 Diarrhea, unspecified; F12.10 Cannabis abuse, uncomplicated
CPT/HCPCS: 36415; 74182-TC; 76705-TC; 80053; 80061; 80307; 82140; 82150; 83690; 83721; 85025; 85027; 87045; 87046; 87324; 87449; 99284-25; J7030

== ENCOUNTER 2018-07-05 15:44 | Emergency (ER) | payer OTHER ==
[2018-07-05 15:57] VITALS: TEMP 98.1; BMI 31.2
[2018-07-05] MEDS ORDERED: ONDANSETRON 4 MG/2 ML VIAL IVPUSH ONE (16:28)
[2018-07-05] MEDS ORDERED: MAG HYDROX/AL HYDROX/SIMETH -MYLANTA- ORAL SUSPENSION PO ONE (16:28)
[2018-07-05] MEDS ORDERED: FAMOTIDINE 20 MG/50 ML IVPB 20 MG/50 ML MG IVPB ONE ×2 (16:28→16:31)
[2018-07-05] MEDS ORDERED: SUCRALFATE 1 GM/10 ML UNIT DOSE CUPS PO ONE (16:29)
[2018-07-05] MEDS ORDERED: SODIUM CHLORIDE 1,000 ML IV STA (16:29)
[2018-07-05] MEDS ORDERED: MAG HYDROX/AL HYDROX/SIMETH 30 ML UNIT-DOSE CUP ONE (16:31)
[2018-07-05] MEDS ORDERED: SUCRALFATE 1 GM TABLET (FP) ONE (16:31)
[2018-07-05] MEDS ORDERED: ONDANSETRON 4 MG/2 ML VIAL ONE (16:31)
[2018-07-05] MEDS ORDERED: SUCRALFATE 1 GM TABLET (FP) PO ONE (16:34)
--- NOTE | 2018-07-05 16:34 | PDOC ---
History of Present Illness - General Chief Complaint: Pain, Acute Stated Complaint: ABD PAIN Time Seen by Provider: 07/05/18 16:09 History Source: Patient - History of Present Illness Timing/Duration: reports: constant, other (this am) Quality: reports: severe, sharpness Abdominal Pain Onset Location: reports: epigastric Past History - Past Medical History Allergies/Adverse Reactions: Allergies Allergy/AdvReac Type Severity Reaction Status Date / Time No Known Allergies Allergy Verified 07/05/18 15:52 Home Medications: Ambulatory Orders Famotidine [Pepcid] 20 mg PO BID #60 tablet 07/05/18 Mag Hydrox/Al Hydrox/Simeth [Mylanta Suspension -] 30 ml PO Q6H #1 bottle Ranitidine HCl [Zantac 75] 75 mg PO DAILY 07/05/18 COPD: No GI Disorders: Yes (pancreatitis) - Immunization History Immunization Up to Date: Yes - Suicide/Smoking/Psychosocial Hx Smoking History: Never smoked Have you smoked in the past 12 months: No Hx Alcohol Use: Yes (1-2 shots per week) Drug/Substance Use Hx: Yes Substance Use Type: Marijuana Hx Substance Use Treatment: No Abd/GI Specific PMHX - Complaint Specific PMHX Colitis: No Diverticulitis: No Gall Bladder Disease: No GERD: No Hepatitis: No Irritable Bowel Synd (IBS): No Pancreatitis: No GI Ulcer Disease: No Review of Systems - Review of Systems Constitutional: No: Chills, Fever Respiratory: No: Shortness of Breath Cardiac (ROS): No: Chest Pain ABD/GI: Yes: Diarrhea, Nausea, Vomiting. No: Blood Streaked Bowels, Constipated : No: Dysuria, Flank Pain, Hematuria Musculoskeletal: No: Back Pain *Physical Exam - Vital Signs Last Vital Signs Temp Pulse Resp BP Pulse Ox 98.1 F 72 18 127/66 100 07/05/18 15:55 07/05/18 15:55 07/05/18 15:55 07/05/18 15:55 07/05/18 15:55 - Physical Exam General Appearance: Yes: Appropriately Dressed, Moderate Distress HEENT: positive: Normal Voice Neck: positive: Supple Respiratory/Chest: positive: Lungs Clear, Normal Breath Sounds. negative: Respiratory Distress Cardiovascular: positive: Regular Rate, S1, S2 Gastrointestinal/Abdominal: positive: Normal Bowel Sounds, Tender (epigastrium, NT to RUQ), Soft. negative: Distended, Guarding, Rebound Musculoskeletal: negative: CVA Tenderness Integumentary: positive: Dry, Warm Neurologic: positive: Fully Oriented, Alert, Normal Mood/Affect ED Treatment Course - LABORATORY CBC & Chemistry Diagram: 07/05/18 16:41 07/05/18 16:41 Medical Decision Making - Medical Decision Making 07/05/18 16:30 23-year-old male reports daily marijuana use, possible gastritis, here with severe upper abdominal pain that started this morning, sharp, constant 10/10, worse with food and deep inspiration. Also reports several episodes of non- bloody, non-bilious vomitus and possible diarrhea. No bright red blood per rectum, melena, fever or chills. States he saw GI who told him he might have gastritis and prescribed him meds but pt does not remember name of med and not currently taking meds. No scope in past. Of note, pt was admitted December of this year for similar symptoms and diagnosed with cyclical vomiting syndrome associated with chronic marijuana use, which patient admits. Was also was diagnosed with pancreatitis w/ lipase of 500s in the past. Denies ETOH use and no h/o gallstones. See exam Gastritis vs cyclical n/v 2/2 daily cannibus use, r/o recurrent pancreatitis -GI cocktail -IVF -labs r/o other source -reassess 07/05/18 17:33 07/05/18 17:34 Labs unremarkable. Patient pending reassessment and po trial. 07/05/18 17:49 Pt reports feeling significantly better at this time and requesting food. Will po trial. Anticipate discharge 07/05/18 18:05 Tolerated po, will dc w/ GI referral *DC/Admit/Observation/Transfer Diagnosis at time of Disposition: Epigastric pain Nausea and vomiting Qualifiers: Vomiting type: unspecified Vomiting Intractability: non-intractable Qualified Code(s): R11.2 - Nausea with vomiting, unspecified - Discharge Dispostion Disposition: HOME Condition at time of disposition: Improved - Prescriptions Prescriptions: Famotidine [Pepcid] 20 mg PO BID #60 tablet Mag Hydrox/Al Hydrox/Simeth [Mylanta Suspension -] 30 ml PO Q6H #1 bottle - Referrals Referrals: Katie Xiao MD [Primary Care Provider] - Kevin Ayon MD [Staff Physician] - - Patient Instructions Printed Discharge Instructions: Gastritis Additional Instructions: The cause of your symptoms is possibly due to gastritis versus cannabis use. We strongly discouraged cannabis use, as this can lead to recurrent nausea, vomiting. Take medications as prescribed. Follow-up with Dr. Ayon of GI for further evaluation and possible endoscopy - Post Discharge Activity
[2018-07-05 16:59] LABS: BASO % 0.6 % (0-2.0); EOS % 0.5 % (0-4.5); HEMATOCRIT 46.1 % (35.4-49); HEMOGLOBIN 15.6 GM/dL (11.7-16.9); LYMPH % 13.4 % (8-40); MCH 28.2 pg (25.7-33.7); MCHC 33.9 g/dl (32.0-35.9); MEAN CELL VOLUME 83.1 fl (80-96); MEAN PLT VOLUME 9.8 fl (7.5-11.1); MONO % 2.9 % (3.8-10.2); NEUT % 82.6 % (42.8-82.8); PLATELET COUNT 349 K/MM3 (134-434); RBC 5.54 M/mm3 (4.00-5.60); WHITE BLOOD COUNT 13.2 K/mm3 (4.0-10.0)
[2018-07-05 17:20] LABS: ALBUMIN 4.5 g/dl (3.4-5.0); ALK PHOS 124 U/L (45-117); ANION GAP 9 MMOL/L (8-16); BILIRUBIN,TOTAL 0.6 mg/dL (0.2-1); BLOOD UREA NITROGEN 17 mg/dL (7-18); CALCIUM 9.7 mg/dL (8.5-10.1); CHLORIDE 105 mmol/L (98-107); CO2 27 mmol/L (21-32); CREATININE 0.8 mg/dL (0.55-1.3); GLUCOSE,RANDOM 120 mg/dL (74-106); LIPASE 60 U/L (73-393); POTASSIUM 4.4 mmol/L (3.5-5.1); SGOT/AST 27 U/L (15-37); SGPT/ALT 45 U/L (13-61); SODIUM 141 mmol/L (136-145); TOT PROT 8.2 g/dl (6.4-8.2)
--- NOTE | 2018-07-05 17:44 | PDOC ---
*Physical Exam - Vital Signs Last Vital Signs Temp Pulse Resp BP Pulse Ox 98.1 F 72 18 127/66 100 07/05/18 15:55 07/05/18 15:55 07/05/18 15:55 07/05/18 15:55 07/05/18 15:55 ED Treatment Course - LABORATORY CBC & Chemistry Diagram: 07/05/18 16:41 07/05/18 16:41 - ADDITIONAL ORDERS Additional order review: Laboratory Results 07/05/18 16:41 Sodium 141 Potassium 4.4 Chloride 105 Carbon Dioxide 27 Anion Gap 9 BUN 17 Creatinine 0.8 Creat Clearance w eGFR > 60 Random Glucose 120 H Calcium 9.7 Total Bilirubin 0.6 AST 27 ALT 45 Alkaline Phosphatase 124 H Total Protein 8.2 Albumin 4.5 Lipase 60 L 07/05/18 16:41 RBC 5.54 MCV 83.1 MCHC 33.9 RDW 13.0 MPV 9.8 Neutrophils % 82.6 D Lymphocytes % 13.4 D Monocytes % 2.9 L Eosinophils % 0.5 D Basophils % 0.6 - Medications Given in the ED: ED Medications Discontinued Medications Generic Name Dose Route Start Last Admin Trade Name Freq PRN Reason Stop Dose Admin Al Hydroxide/Mg Hydroxide 30 ml 07/05/18 16:28 07/05/18 16:44 Mylanta Suspension - PO 07/05/18 16:29 30 ml ONCE ONE Administration Famotidine/Sodium Chloride 20 mg in 50 mls @ 100 mls/hr 07/05/18 16:28 16:44 Pepcid 20 Mg Premixed Ivpb - IVPB 07/05/18 16:57 100 mls/hr ONCE ONE Administration Sodium Chloride 1,000 mls @ 1,000 mls/hr 07/05/18 16:29 07/05/18 16:44 Normal Saline - IV 07/05/18 17:28 1,000 mls/hr ASDIR STA Administration Ondansetron HCl 4 mg 07/05/18 16:28 07/05/18 16:44 Zofran Injection IVPUSH 07/05/18 16:29 4 mg ONCE ONE Administration Sucralfate 1 gm 07/05/18 16:29 07/05/18 16:44 Carafate Oral Suspension - PO 07/05/18 16:30 Not Given ONCE ONE Sucralfate 1 gm 07/05/18 16:34 07/05/18 16:44 Carafate - PO 07/05/18 16:35 1 gm ONCE ONE Administration Medical Decision Making - Medical Decision Making 07/05/18 17:46 The patient was seen and evaluated in conjunction with SAM Richardson under my direct supervision, ancillary studies were reviewed. I independently interviewed and evaluated the patient and I agree with the plan as outlined by SAM Richardson . *DC/Admit/Observation/Transfer Diagnosis at time of Disposition: Epigastric pain Nausea and vomiting Qualifiers: Vomiting type: unspecified Vomiting Intractability: non-intractable Qualified Code(s): R11.2 - Nausea with vomiting, unspecified - Referrals Referrals: Katie Xiao MD [Primary Care Provider] - - Patient Instructions - Post Discharge Activity
[2018-07-05 18:16] VITALS: BP 106/66; PULSE 63
== END 2018-07-05 18:19 | disposition home or self-care (01) ==
LOC: JER 15:44
PROC: 3E033GC Introduction of Other Therapeutic Substance into Peripheral Vein, Percutaneous Approach (ICD-10-PCS; principal; 2018-07-05)
DX: R10.13 Epigastric pain (principal); R11.2 Nausea with vomiting, unspecified
CPT/HCPCS: 36415; 80053; 83690; 85025; 96361; 96365; 96375; 99282-25; J7030

== ENCOUNTER 2018-07-08 08:30 | Emergency (ER) | payer OTHER ==
[2018-07-08 08:49] VITALS: TEMP 98.6; BMI 29.1
--- NOTE | 2018-07-08 09:01 | PDOC ---
History of Present Illness - General Chief Complaint: Pain, Acute Stated Complaint: VOMITING, ABD PAIN Time Seen by Provider: 07/08/18 08:59 History Source: Patient Exam Limitations: No Limitations - History of Present Illness Travel History: No Initial Comments: 07/08/18 09:22 Patient has return to this emergency department with complaints of recurrent and continued vomiting since Sunday. Was seen here diagnosed with gastritis and cyclical vomiting syndrome related to daily marijuana use. Patient was seen also in December where he was admitted for pancreatitis for same syndrome. Patient followed up with a tax form preparer but has never had any upper or lower endoscopy performed. has continued smoking marijuana daily but has not had any since Sunday after his admission here. States has continued to be nauseous and vomiting. States through up approximately 5 or 6 times today and is noted some bright red blood streaking. No copious amounts. Has never had a known upper or lower GI bleed. Denies any black tarriness to stool but has diarrhea. Was prescribed Pepcid and Maalox. States the Pepcid makes him sick to his stomach but is been using Maalox. Denies fever, ear or throat pain, no cough or upper respiratory illness. Denies any dysuria. Denies any other drug use or alcohol use. Works at [employer] 07/08/18 09:24 Timing/Duration: reports: constant, getting worse, changing over time Quality: reports: mild, moderate, stabbing, throbbing Past History - Travel Traveled outside of the country in the last 30 days: No Close contact w/someone who was outside of country & ill: No - Past Medical History Allergies/Adverse Reactions: Allergies Allergy/AdvReac Type Severity Reaction Status Date / Time No Known Allergies Allergy Verified 07/05/18 15:52 Home Medications: Ambulatory Orders Famotidine [Pepcid] 20 mg PO BID #60 tablet 07/05/18 Mag Hydrox/Al Hydrox/Simeth [Mylanta Suspension -] 30 ml PO Q6H #1 bottle Ranitidine HCl [Zantac 75] 75 mg PO DAILY 07/05/18 Calcium Carbonate/Simethicone [Maalox Advanced Tab Chew] 1 each PO AC #30 tab.chew 07/08/18 Omeprazole 20 mg PO DAILY #30 tablet. 07/08/18 COPD: No GI Disorders: Yes (pancreatitis) - Immunization History Immunization Up to Date: Yes - Suicide/Smoking/Psychosocial Hx Smoking History: Never smoked Have you smoked in the past 12 months: No Hx Alcohol Use: No Drug/Substance Use Hx: No Substance Use Type: Marijuana Hx Substance Use Treatment: No Abd/GI Specific PMHX - Complaint Specific PMHX Colitis: No Diverticulitis: No Gall Bladder Disease: No GERD: No Hepatitis: No Irritable Bowel Synd (IBS): No Pancreatitis: No GI Ulcer Disease: No Review of Systems - Review of Systems Able to Perform ROS?: Yes Is the patient limited Cypriot proficient: Yes Constitutional: Yes: Symptoms Reported, See HPI HEENTM: Yes: See HPI. No: Symptoms Reported Respiratory: Yes: See HPI. No: Symptoms reported, Cough ABD/GI: Yes: Symptoms Reported, See HPI, Nausea, Vomiting, Indigestion Musculoskeletal: Yes: See HPI. No: Symptoms Reported, Back Pain Integumentary: Yes: See HPI. No: Symptoms Reported All Other Systems: Reviewed and Negative *Physical Exam - Vital Signs Last Vital Signs Temp Pulse Resp BP Pulse Ox 98.6 F 78 24 H 115/79 99 07/08/18 08:46 07/08/18 08:46 07/08/18 08:46 07/08/18 08:46 07/08/18 08:46 - Physical Exam General Appearance: Yes: Nourished, Appropriately Dressed, Apparent Distress, Mild Distress, Moderate Distress HEENT: positive: EOMI, NEW, Normal ENT Inspection, Normal Voice, TMs Normal, Pharynx Normal, Other (no redness, swelling, bleeding/bite red blood noted in posterior pharynx. Emesis has no evidence of bright red blood or coffee grounds) . negative: Nasal Congestion, Rhinorrhea Neck: positive: Supple. negative: Tender Respiratory/Chest: positive: Lungs Clear, Normal Breath Sounds Gastrointestinal/Abdominal: positive: Tender (has generalized and diffuse tenderness, no rebound or guarding. Patient points to pain is primarily mid epigastrium and umbilical. No bloating, no firmness, no palpable liver or splenic borders.), Soft, Increased Bowel Sounds, Tenderness. negative: Distended, Guarding, Rebound Rectal Exam: positive: normal exam, normal rectal tone. negative: heme negative stool, hemorrhoids Musculoskeletal: positive: Normal Inspection. negative: CVA Tenderness, Vertebral Tenderness Extremity: positive: Normal Capillary Refill, Normal Inspection, Normal Range of Motion Integumentary: positive: Normal Color, Dry, Warm, Pale Neurologic: positive: automotive airconditioning mechanic II-XII NML intact, Fully Oriented, Alert, Normal Mood/ Affect, Normal Response, Motor Strength 01/12 ED Treatment Course - LABORATORY CBC & Chemistry Diagram: 07/08/18 09:20 07/08/18 09:10 Medical Decision Making - Medical Decision Making 07/08/18 09:30 Gastritis, probably related to continued cyclical vomiting syndrome. 07/08/18 10:54 Patient resting quietly, has received 1 L of IV fluid and 20 mg of IV Pepcid. still has some cramping in his midepigastrium and is asking for morphine. was seen at [facility] emergency Department yesterday for same syndrome, was told labs were relatively normal but received morphine for cramping and states wished to have more. Patient since medication this morning here has had no episodes of emesis, no further noted bleeding, and appears to feel better. As patient had +2 ketones in urine we'll provide 1 more liter of IV fluid and discussed strong pain medications which patient does not have currently, and agrees to receive IV sedative medicine and will discharge if chest x-ray results are negative. Sister who is with patient states they have a gastroenterology appointment with physician at [facility] tomorrow at 1 PM. 07/08/18 10:55 *DC/Admit/Observation/Transfer Diagnosis at time of Disposition: Cyclic vomiting syndrome Qualifiers: Vomiting Intractability: unspecified Nausea presence: with nausea Qualified Code(s): G43.A0 - Cyclical vomiting, not intractable Gastritis Qualifiers: Gastritis type: other gastritis Chronicity: chronic Gastritis bleeding: without bleeding Qualified Code(s): K29.50 - Unspecified chronic gastritis without bleeding - Discharge Dispostion Disposition: HOME Condition at time of disposition: Stable Decision to Admit order: No - Prescriptions Prescriptions: Calcium Carbonate/Simethicone [Maalox Advanced Tab Chew] 1 each PO AC #30 tab.chew Omeprazole 20 mg PO DAILY #30 tablet.dr - Referrals Referrals: Katie Xiao MD [Primary Care Provider] - - Patient Instructions Printed Discharge Instructions: DI for Gastritis, DI for Cyclic Vomiting Syndrome-Child Additional Instructions: Rest, drink lots of fluids: Teas, water, soups Shasha bria, carbonated beverages for the bubbles May try peppermint teas Avoid heavy , spicy or fatty foods until symptoms have resolved NO SMOKING MARIJUANA Avoid contact with others until fevers and symptoms resolved Lots of handwashing and good hygiene Continue [id number] medications for symptomatic relief Omeprazole 20mg tab every day until instructed to do otherwise Maalox every 4 hours as needed Tylenol or Motrin for fever and pain Followup with private physician in one to 2 days as needed BE SURE TO KEEP APPOINTMENT with Renderer. Return to emergency department for worsened symptoms, fevers, dehydration - Post Discharge Activity Forms/Work/School Notes: Back to Work
[2018-07-08] MEDS ORDERED: SODIUM CHLORIDE 1,000 ML IV ONE ×2 (09:20→10:51)
[2018-07-08] MEDS ORDERED: FAMOTIDINE 20 MG/50 ML IVPB 20 MG/50 ML MG IVPB ONE ×2 (09:21→09:24)
[2018-07-08] MEDS ORDERED: ONDANSETRON *ODT* 4 MG TABLET SL ONE (09:21)
[2018-07-08] MEDS ORDERED: ONDANSETRON 4 MG/2 ML VIAL ONE (09:24)
[2018-07-08 09:28] LABS: BASO % 0.5 % (0-2.0); EOS % 1.6 % (0-4.5); HEMATOCRIT 44.5 % (35.4-49); LYMPH % 19.8 % (8-40); MCH 27.8 pg (25.7-33.7); MCHC 33.6 g/dl (32.0-35.9); MEAN CELL VOLUME 82.6 fl (80-96); MEAN PLT VOLUME 9.3 fl (7.5-11.1); MONO % 6.8 % (3.8-10.2); NEUT % 71.3 % (42.8-82.8); PLATELET COUNT 282 K/MM3 (134-434); RBC 5.39 M/mm3 (4.00-5.60); RDW 12.8 % (11.9-15.9); WHITE BLOOD COUNT 12.5 K/mm3 (4.0-10.0)
[2018-07-08] MEDS ORDERED: ONDANSETRON *ODT* 4 MG TABLET ONE (09:32)
[2018-07-08 09:57] LABS: ALBUMIN 4.4 g/dl (3.4-5.0); ALK PHOS 101 U/L (45-117); ANION GAP 12 MMOL/L (8-16); BLOOD UREA NITROGEN 13 mg/dL (7-18); CALCIUM 9.1 mg/dL (8.5-10.1); CHLORIDE 105 mmol/L (98-107); CO2 26 mmol/L (21-32); CREATININE 0.8 mg/dL (0.55-1.3); GLUCOSE,RANDOM 107 mg/dL (74-106); LIPASE 96 U/L (73-393); POTASSIUM 3.6 mmol/L (3.5-5.1); SGOT/AST 24 U/L (15-37); SGPT/ALT 49 U/L (13-61); SODIUM 143 mmol/L (136-145); TOT PROT 7.6 g/dl (6.4-8.2)
[2018-07-08 10:13] LABS: URINE APPEARANCE TURBID; URINE BILIRUBIN NEGATIVE (<2.0 mg/dL); URINE COLOR DKYELLOW; URINE GLUCOSE (UA) NEGATIVE (NEGATIVE); URINE KETONE 2+ (NEGATIVE); URINE LEUK ESTERASE NEGATIVE (NEGATIVE); URINE NITRITE NEGATIVE (NEGATIVE); URINE PROTEIN NEGATIVE (NEGATIVE); URINE UROBILINOGEN NEGATIVE mg/dL (0.2-1.0)
[2018-07-08] MEDS ORDERED: MAG HYDROX/AL HYDROX/SIMETH 30 ML UNIT-DOSE CUP PO ONE (10:16)
[2018-07-08] MEDS ORDERED: MAG HYDROX/AL HYDROX/SIMETH 30 ML UNIT-DOSE CUP ONE (10:36)
[2018-07-08] MEDS ORDERED: ACETAMINOPHEN 1000 MG/100 ML VIAL (NON FORMULARY) IVPB ONE (10:51)
[2018-07-08] MEDS ORDERED: ACETAMINOPHEN INJECTION 100 ML IVPB ONE (10:56)
[2018-07-08 12:55] VITALS: BP 121/85; PULSE 89
== END 2018-07-08 12:54 | disposition home or self-care (01) ==
LOC: JER 08:30
PROC: 3E033GC Introduction of Other Therapeutic Substance into Peripheral Vein, Percutaneous Approach (ICD-10-PCS; principal; 2018-07-08)
PROC: 3E033NZ Introduction of Analgesics, Hypnotics, Sedatives into Peripheral Vein, Percutaneous Approach (ICD-10-PCS; 2018-07-08)
DX: G43.A0 Cyclical vomiting, in migraine, not intractable (principal); K29.50 Unspecified chronic gastritis without bleeding; Z87.19 Personal history of other diseases of the digestive system
CPT/HCPCS: 36415; 71046-TC-FY; 80053; 81003; 82272; 83690; 85025; 96365; 96375; 99283-25; J0131; J7030; Q0162

== ENCOUNTER 2019-01-11 10:33 | Emergency (ER) | payer OTHER ==
[2019-01-11 10:52] VITALS: BMI 32.9
--- NOTE | 2019-01-11 10:59 | PDOC ---
History of Present Illness - General Chief Complaint: Pain, Acute Stated Complaint: ABD/ HEADACHE/COLD SWEATS Time Seen by Provider: 01/11/19 10:59 Past History - Past Medical History Allergies/Adverse Reactions: Allergies Allergy/AdvReac Type Severity Reaction Status Date / Time No Known Allergies Allergy Verified 01/11/19 10:51 Home Medications: Ambulatory Orders NK [No Known Home Medication] 01/11/19 COPD: No GI Disorders: Yes (pancreatitis) - Immunization History Immunization Up to Date: Yes - Suicide/Smoking/Psychosocial Hx Smoking History: Never smoked Have you smoked in the past 12 months: No Hx Alcohol Use: No Drug/Substance Use Hx: No Substance Use Type: Marijuana Hx Substance Use Treatment: No *Physical Exam - Vital Signs Last Vital Signs Temp Pulse Resp BP Pulse Ox 98.1 F 63 26 H 129/90 96 01/11/19 10:51 01/11/19 10:51 01/11/19 10:51 01/11/19 10:51 01/11/19 10:51
[2019-01-11] MEDS ORDERED: SODIUM CHLORIDE 1,000 ML IV STA (11:10)
[2019-01-11] MEDS ORDERED: morphine CARPU-JECT 2 MG/1 ML DISP.SYRIN IVPUSH ONE (11:11)
[2019-01-11] MEDS ORDERED: ONDANSETRON 4 MG/2 ML VIAL IVPUSH ONE ×2 (11:22→17:04)
[2019-01-11] MEDS ORDERED: FAMOTIDINE 20 MG/50 ML IVPB 20 MG/50 ML MG IVPB ONE ×3 (11:26→17:35)
--- NOTE | 2019-01-11 11:30 | PDOC ---
History of Present Illness - General Chief Complaint: Pain, Acute Stated Complaint: ABD/ HEADACHE/COLD SWEATS Time Seen by Provider: 01/11/19 10:59 History Source: Patient Exam Limitations: No Limitations - History of Present Illness Initial Comments: 01/11/19 11:26 23 y/o male with PMH of H pylori and pancreatitis presents to the ED with a 2 day history of epigastric and periumbilical pain. Patient states that the pain started suddenly around 2 days ago, and has been constant (at its worst has been a 9/10) denies any diarrhea however has had 4 episodes of vomiting this AM. He thought that it was his GERD pain so he was taking zanatc in the mornings however it was making the pain worse. No one else is sick at home with any similar symptoms. He denies any recent travel. Timing/Duration: getting worse Severity: severe Associated Symptoms: reports: loss of appetite, nausea/vomiting. denies: chest pain Past History - Travel Traveled outside of the country in the last 30 days: No Close contact w/someone who was outside of country & ill: No - Past Medical History Allergies/Adverse Reactions: Allergies Allergy/AdvReac Type Severity Reaction Status Date / Time No Known Allergies Allergy Verified 01/11/19 10:51 Home Medications: Ambulatory Orders Mag Hydrox/Al Hydrox/Simeth [Mylanta *Suspension*] 10 ml PO Q6H #1 cup 01/11/19 Pantoprazole Sodium [Protonix] 40 mg PO DAILY #14 tablet. 01/11/19 Ranitidine HCl [Zantac] 150 mg PO BID #28 tablet 01/11/19 COPD: No GI Disorders: Yes (pancreatitis) Other medical history: H/O H PYLORIC - Immunization History Immunization Up to Date: Yes - Suicide/Smoking/Psychosocial Hx Smoking History: Never smoked Have you smoked in the past 12 months: No Hx Alcohol Use: No Drug/Substance Use Hx: No Substance Use Type: Marijuana Hx Substance Use Treatment: No Review of Systems - Review of Systems Able to Perform ROS?: Yes Is the patient limited Maori proficient: No Constitutional: Yes: Diaphoresis HEENTM: No: Blurred Vision Respiratory: No: Cough, Shortness of Breath Cardiac (ROS): No: Chest Pain ABD/GI: Yes: Vomiting, Other (abdominal pain ) : No: Burning, Dysuria Musculoskeletal: No: Back Pain Neurological: No: Headache, Numbness *Physical Exam - Vital Signs Last Vital Signs Temp Pulse Resp BP Pulse Ox 98.1 F 63 26 H 129/90 96 01/11/19 10:51 01/11/19 10:51 01/11/19 10:51 01/11/19 10:51 01/11/19 10:51 - Physical Exam General Appearance: Yes: Moderate Distress Neck: positive: Normal Thyroid Respiratory/Chest: positive: Lungs Clear, Normal Breath Sounds Cardiovascular: positive: Regular Rhythm, Regular Rate, S1, S2 Gastrointestinal/Abdominal: positive: Normal Bowel Sounds, Tender ( periumbilical and epigastric region). negative: Guarding, Rebound Musculoskeletal: negative: CVA Tenderness Integumentary: positive: Warm, Clammy Neurologic: positive: Fully Oriented, Alert ED Treatment Course - LABORATORY CBC & Chemistry Diagram: 01/11/19 12:45 01/11/19 12:45 - RADIOLOGY Radiology Studies Ordered: Category Date Time Status ABDOMEN & PELVIS CT WITH CONTR [CT] Stat CT Scan 01/11/19 11:11 Ordered Medical Decision Making - Medical Decision Making 01/11/19 11:32 cbc/cmp/lipase/trop RUQ u/s zofran/fluids/pepcid CT negative for appendicitis ; no gallstones no obstruction 01/11/19 16:54 *DC/Admit/Observation/Transfer Diagnosis at time of Disposition: Nausea and vomiting, Epigastric pain - Discharge Dispostion Disposition: HOME Condition at time of disposition: Stable - Prescriptions Prescriptions: Mag Hydrox/Al Hydrox/Simeth [Mylanta *Suspension*] 10 ml PO Q6H #1 cup Pantoprazole Sodium [Protonix] 40 mg PO DAILY #14 tablet. Ranitidine HCl [Zantac] 150 mg PO BID #28 tablet - Referrals Referrals: Jason Garsia DO [Staff Physician] - - Patient Instructions Printed Discharge Instructions: DI for Gastroesophageal Reflux Disease (GERD) Additional Instructions: we are prescribing you medications for your acid reflux to be taken daily we are aslo referring you to a tare worker, Dr. Garsia we would like you to follow up with within one week please follow up with primary care physician within one week - Post Discharge Activity - Attestations Physician Attestion: 01/11/19 16:56 Noreen Nava
--- NOTE | 2019-01-11 11:51 | PDOC ---
Attending Attestation - Resident Resident Name: Noreen Nava - ED Attending Attestation I have performed the following: I have examined & evaluated the patient, The case was reviewed & discussed with the resident, I agree w/resident's findings & plan, Exceptions are as noted - HPI HPI: 01/11/19 12:20 23-year-old male with history of H. pylori and pancreatitis presents with epigastric pain since this morning. The patient reported severe pressure-like pain with epigastric reproducible palpation. Reports decreased appetite and some nausea but denies any diarrhea. Reports tactile fevers and chills. Patient denies any prior abdominal surgery. Patient reports diaphoresis but he thinks he is chills. Denies take any medications prior to arrival to the ER. - Physicial Exam PE: 01/11/19 12:21 GENERAL: Awake, alert, and fully oriented, uncomfortable appearing. +diaphoresis HEAD: No signs of trauma EYES: EOMI, sclera anicteric, conjunctiva clear ENT: Auricles normal inspection, hearing grossly normal, nares patent, NECK: Normal ROM, supple ABDOMEN: Soft, TTP epigastric. Figueredo sign negative. No guarding, no rebound. No masses EXTREMITIES: Normal range of motion, no edema. No clubbing or cyanosis. No cords, erythema, or tenderness NEUROLOGICAL: Cranial nerves II through XII grossly intact. Normal speech, SKIN: Warm, Dry, normal turgor, no rashes or lesions noted. - Medical Decision Making 01/11/19 12:28 Vital Signs Temp Pulse Resp BP Pulse Ox 98.1 F 63 26 H 129/90 96 01/11/19 10:51 01/11/19 10:51 01/11/19 10:51 01/11/19 10:51 01/11/19 10:51 Differential includes r/o pancreatitis, biliary colic, biliary pathology, gastroenteritis, gastritis. Labs, IVF, RUQ ultrasound and reassess. No lower abdominal tenderness noted on my physical exam. 01/11/19 13:52 CBC, BMP 01/11/19 12:45 01/11/19 12:45 CMP Sodium 142 mmol/L (136-145) 01/11/19 12:45 Potassium 3.9 mmol/L (3.5-5.1) 01/11/19 12:45 Chloride 106 mmol/L (98-107) 01/11/19 12:45 Carbon Dioxide 31 mmol/L (21-32) 01/11/19 12:45 Anion Gap 5 MMOL/L (8-16) L 01/11/19 12:45 BUN 14 mg/dL (7-18) 01/11/19 12:45 Creatinine 0.8 mg/dL (0.55-1.3) 01/11/19 12:45 Creat Clearance w eGFR 122.03 (>60) 01/11/19 12:45 Random Glucose 124 mg/dL (74-106) H 01/11/19 12:45 Calcium 9.0 mg/dL (8.5-10.1) 01/11/19 12:45 Total Bilirubin 0.6 mg/dL (0.2-1) 01/11/19 12:45 AST 24 U/L (15-37) 01/11/19 12:45 ALT 49 U/L (13-61) 01/11/19 12:45 Alkaline Phosphatase 150 U/L (45-117) H 01/11/19 12:45 Total Protein 7.8 g/dl (6.4-8.2) 01/11/19 12:45 Albumin 4.3 g/dl (3.4-5.0) 01/11/19 12:45 Lipase 90 U/L (73-393) 01/11/19 12:45 Ultrasound reviewed. No acute findings. 01/11/19 16:49 CT scan of the abdomen and pelvis reviewed. No acute findings. I suspect that the patient's abdominal discomfort is gastritis/H. pylori. Will need to d/c patient on protonix, mylanta, and zantac. Pt may potentially need an eendoscopy as an outpatient. Heart Score/ECG Review #1 ECG reviewed & interpreted by me at: 13:30 01/11/19 14:14 NSR 72, no std/krishna, normal axis, normal intervals, QTC 400 msec
[2019-01-11] MEDS ORDERED: morphine SULFATE 4 MG/ML VIAL ONE (12:03)
[2019-01-11] MEDS ORDERED: ONDANSETRON 4 MG/2 ML VIAL ONE ×2 (12:36→17:17)
[2019-01-11 13:05] LABS: BASO % 0.7 % (0-2.0); EOS % 1.3 % (0-4.5); HEMOGLOBIN 15.2 GM/dL (11.7-16.9); LYMPH % 11.8 % (8-40); MCH 27.6 pg (25.7-33.7); MEAN CELL VOLUME 83.5 fl (80-96); MEAN PLT VOLUME 9.7 fl (7.5-11.1); MONO % 3.1 % (3.8-10.2); NEUT % 83.1 % (42.8-82.8); PLATELET COUNT 290 K/MM3 (134-434); RBC 5.51 M/mm3 (4.00-5.60); RDW 13.5 % (11.9-15.9); WHITE BLOOD COUNT 13.3 K/mm3 (4.0-10.0)
[2019-01-11 13:29] LABS: ALBUMIN 4.3 g/dl (3.4-5.0); ALK PHOS 150 U/L (45-117); ANION GAP 5 MMOL/L (8-16); BILIRUBIN,TOTAL 0.6 mg/dL (0.2-1); BLOOD UREA NITROGEN 14 mg/dL (7-18); CHLORIDE 106 mmol/L (98-107); CO2 31 mmol/L (21-32); CREATININE 0.8 mg/dL (0.55-1.3); GLUCOSE,RANDOM 124 mg/dL (74-106); LIPASE 90 U/L (73-393); POTASSIUM 3.9 mmol/L (3.5-5.1); SGOT/AST 24 U/L (15-37); SGPT/ALT 49 U/L (13-61); SODIUM 142 mmol/L (136-145); TOT PROT 7.8 g/dl (6.4-8.2)
[2019-01-11] MEDS ORDERED: MAG HYDROX/AL HYDROX/SIMETH -MYLANTA- ORAL SUSPENSION PO ONE (13:31)
[2019-01-11] MEDS ORDERED: MAG HYDROX/AL HYDROX/SIMETH 30 ML UNIT-DOSE CUP ONE (14:09)
[2019-01-11 15:33] LABS: PH,URINE >= 9.0 (5.0-8.0); URINE APPEARANCE CLEAR; URINE BILIRUBIN NEGATIVE (NEGATIVE); URINE COLOR YELLOW; URINE GLUCOSE (UA) NEGATIVE (NEGATIVE); URINE KETONE NEGATIVE (NEGATIVE); URINE LEUK ESTERASE NEGATIVE (NEGATIVE); URINE NITRITE NEGATIVE (NEGATIVE); URINE PROTEIN NEGATIVE (NEGATIVE); URINE UROBILINOGEN 0.2 mg/dL (0.2-1.0)
[2019-01-11] MEDS ORDERED: SODIUM CHLORIDE 500 ML IV STA (17:07)
[2019-01-11 17:29] VITALS: BP 127/75; PULSE 90; TEMP 98.7
--- NOTE | 2019-01-12 09:19 | EKG ---
Test Reason : Blood Pressure : / mmHG Vent. Rate : 072 BPM Atrial Rate : 082 BPM P-R Int : 158 ms QRS Dur : 082 ms QT Int : 366 ms P-R-T Axes : 062 067 045 degrees QTc Int : 400 ms SINUS RHYTHM WITH MARKED SINUS ARRHYTHMIA OTHERWISE NORMAL ECG NO PREVIOUS ECGS AVAILABLE Confirmed by SHANA CANO, SU ([id number]) on 01/12/2019 9:19:33 AM Referred By: Confirmed By:SU SALDANA MD
== END 2019-01-11 18:11 | disposition home or self-care (01) ==
LOC: JER 10:33
PROC: 3E0337Z Introduction of Electrolytic and Water Balance Substance into Peripheral Vein, Percutaneous Approach (ICD-10-PCS; principal; 2019-01-11)
PROC: 3E0337Z Introduction of Electrolytic and Water Balance Substance into Peripheral Vein, Percutaneous Approach (ICD-10-PCS; 2019-01-11)
PROC: 3E033GC Introduction of Other Therapeutic Substance into Peripheral Vein, Percutaneous Approach (ICD-10-PCS; 2019-01-11)
PROC: 3E033GC Introduction of Other Therapeutic Substance into Peripheral Vein, Percutaneous Approach (ICD-10-PCS; 2019-01-11)
PROC: 3E033GC Introduction of Other Therapeutic Substance into Peripheral Vein, Percutaneous Approach (ICD-10-PCS; 2019-01-11)
PROC: 3E033NZ Introduction of Analgesics, Hypnotics, Sedatives into Peripheral Vein, Percutaneous Approach (ICD-10-PCS; 2019-01-11)
DX: K21.9 Gastro-esophageal reflux disease without esophagitis (principal)
CPT/HCPCS: 36415; 74177-TC; 76705-TC; 80053; 81003; 83690; 84484; 85025; 93005; 93010; 96361; 96365; 96375; 96376; 99283-25; J7030

== ENCOUNTER 2019-10-18 08:21 | Emergency (ER) | payer OTHER ==
[2019-10-18 08:28] VITALS: PULSE 65; BMI 30.7
[2019-10-18] MEDS ORDERED: SODIUM CHLORIDE 1,000 ML IV STA ×2 (08:42→10:27)
[2019-10-18] MEDS ORDERED: ONDANSETRON 4 MG/2 ML VIAL IVPUSH ONE (08:42)
[2019-10-18] MEDS ORDERED: morphine CARPU-JECT 2 MG/1 ML DISP.SYRIN IVPUSH ONE (08:50)
[2019-10-18] MEDS ORDERED: PANTOPRAZOLE SODIUM 40 MG VIAL IVPUSH ONE (08:50)
[2019-10-18] MEDS ORDERED: ONDANSETRON 4 MG/2 ML VIAL ONE (09:09)
[2019-10-18] MEDS ORDERED: morphine SULFATE 4 MG/ML VIAL ONE (09:09)
[2019-10-18] MEDS ORDERED: PANTOPRAZOLE SODIUM 40 MG/100 ML BAG IVPB ONE (09:09)
[2019-10-18 10:05] LABS: BASO % 0.6 % (0-2.0); EOS % 0.7 % (0-4.5); HEMATOCRIT 44.3 % (35.4-49); HEMOGLOBIN 15.3 GM/dL (11.7-16.9); MCH 28.7 pg (25.7-33.7); MCHC 34.5 g/dl (32.0-35.9); MEAN CELL VOLUME 83.3 fl (80-96); MEAN PLT VOLUME 9.7 fl (7.5-11.1); MONO % 6.5 % (3.8-10.2); NEUT % 76.2 % (42.8-82.8); PLATELET COUNT 276 K/MM3 (134-434); RBC 5.32 M/mm3 (4.00-5.60); RDW 13.3 % (11.9-15.9); WHITE BLOOD COUNT 11.4 K/mm3 (4.0-10.0)
--- NOTE | 2019-10-18 10:09 | PDOC ---
History of Present Illness - General History Source: Patient Exam Limitations: No Limitations - History of Present Illness Travel History: No Initial Comments: 10/18/19 09:55 24-year-old male with history of pancreatitis in 2018 and H. pylori last year presents to ED with epigastric pain along with nausea and vomiting for the past few days. Patient states went to [facility] 2 days ago and was admitted but left yesterday since he was feeling better. Patient states was discharged home with Cipro and Flagyl which he states as soon as he started taking the medication the pain and the nausea/vomiting recurred. Patient denies fever, chills, headache, diarrhea, urinary complaints, recent travel, or recent sick contacts. Patient states had abdominal CT done at [facility] Timing/Duration: reports: constant Quality: reports: mild, cramping, sharpness Abdominal Pain Onset Location: reports: epigastric Pain Radiation: reports: no radiation Aggravating Factors: improves with: None Alleviating Factors: improves with: None <Jennifer Odom - Last Filed: 10/19/19 09:18> <Torsten Meade - Last Filed: 10/23/19 20:03> - General Chief Complaint: Nausea/Vomiting Stated Complaint: VOMITING/DIARRHEA Time Seen by Provider: 10/18/19 08:41 Past History - Travel Traveled outside of the country in the last 30 days: No Close contact w/someone who was outside of country & ill: No - Past Medical History COPD: No GI Disorders: Yes (pancreatitis) - Immunization History Immunization Up to Date: Yes - Psycho Social/Smoking Cessation Hx Smoking History: Unknown if ever smoked Have you smoked in the past 12 months: No Hx Alcohol Use: No Drug/Substance Use Hx: No Substance Use Type: Marijuana Hx Substance Use Treatment: No Patient Lives Alone: No Lives with/in: parents <Jennifer Odom - Last Filed: 10/19/19 09:18> <Torsten Meade - Last Filed: 10/23/19 20:03> - Past Medical History Allergies/Adverse Reactions: Allergies Allergy/AdvReac Type Severity Reaction Status Date / Time No Known Allergies Allergy Verified 10/18/19 08:34 Home Medications: Ambulatory Orders Ciprofloxacin HCl [Cipro] 1 tab PO Q12H 10/18/19 Ondansetron HCl [Zofran] 4 mg PO TID PRN #12 tablet 10/18/19 metroNIDAZOLE [Flagyl -] 1 tab PO Q8H 10/18/19 Abd/GI Specific PMHX - Complaint Specific PMHX Colitis: No Diverticulitis: No Gall Bladder Disease: No GERD: No Hepatitis: No Irritable Bowel Synd (IBS): No Pancreatitis: No GI Ulcer Disease: No <Jennifer Odom - Last Filed: 10/19/19 09:18> Review of Systems - Review of Systems Able to Perform ROS?: Yes Constitutional: No: Symptoms Reported HEENTM: No: Symptoms Reported Respiratory: No: Symptoms reported Cardiac (ROS): No: Symptoms Reported ABD/GI: Yes: Nausea, Poor Appetite, Poor Fluid Intake, Vomiting, Abdominal cramping Musculoskeletal: No: Symptoms Reported Integumentary: No: Symptoms Reported Neurological: No: Symptoms reported <Jennifer Odom - Last Filed: 10/19/19 09:18> *Physical Exam - Vital Signs Last Vital Signs Temp Pulse Resp BP Pulse Ox 98 F 65 18 125/85 100 10/18/19 08:23 10/18/19 08:23 10/18/19 08:23 10/18/19 08:23 10/18/19 08:23 - Physical Exam General Appearance: Yes: Nourished, Appropriately Dressed. No: Apparent Distress HEENT: negative: Pale Conjunctivae Neck: positive: Supple Respiratory/Chest: positive: Lungs Clear, Normal Breath Sounds. negative: Respiratory Distress, Accessory Muscle Use Cardiovascular: positive: Regular Rhythm, Regular Rate. negative: Murmur Gastrointestinal/Abdominal: positive: Soft, Tenderness (epigastric tenderness) Musculoskeletal: negative: CVA Tenderness Extremity: positive: Normal Inspection Integumentary: positive: Normal Color, Warm, Moist Neurologic: positive: Motor Strength 5/5 (ambulatory) <Jennifer Odom - Last Filed: 10/19/19 09:18> - Vital Signs Last Vital Signs Temp Pulse Resp BP Pulse Ox 98.2 F 65 18 120/56 L 100 10/18/19 12:03 10/18/19 12:03 10/18/19 12:03 10/18/19 12:03 10/18/19 12:03 <Torsten Meade - Last Filed: 10/23/19 20:03> ED Treatment Course - LABORATORY CBC & Chemistry Diagram: 10/18/19 09:25 10/18/19 09:07 - Medications Given in the ED: ED Medications Discontinued Medications Generic Name Dose Route Start Last Admin Trade Name Romel PRN Reason Stop Dose Admin Sodium Chloride 1,000 mls @ 1,000 mls/hr 10/18/19 08:42 10/18/19 09:37 Normal Saline - IV 10/18/19 09:41 1,000 mls/hr ASDIR STA Administration Morphine Sulfate 4 mg 10/18/19 08:50 10/18/19 09:39 Morphine Injection - IVPUSH 10/18/19 08:51 4 mg ONCE ONE Administration Ondansetron HCl 4 mg 10/18/19 08:42 10/18/19 09:38 Zofran Injection IVPUSH 10/18/19 08:43 4 mg ONCE ONE Administration Pantoprazole Sodium 40 mg 10/18/19 08:50 10/18/19 09:40 Protonix Iv IVPUSH 10/18/19 08:51 40 mg ONCE ONE Administration <Jennifer Odom - Last Filed: 10/19/19 09:18> - LABORATORY CBC & Chemistry Diagram: 10/18/19 09:25 10/18/19 09:07 - ADDITIONAL ORDERS Additional order review: 10/18/19 10:30 Urine Culture - Final Urine - Urine Clean Catch NO GROWTH OBTAINED 10/18/19 09:25 RBC 5.32 MCV 83.3 MCHC 34.5 RDW 13.3 MPV 9.7 Neutrophils % 76.2 Lymphocytes % 16.0 D Monocytes % 6.5 D Eosinophils % 0.7 Basophils % 0.6 - Medications Given in the ED: ED Medications Discontinued Medications Generic Name Dose Route Start Last Admin Trade Name Romel PRN Reason Stop Dose Admin Sodium Chloride 1,000 mls @ 1,000 mls/hr 10/18/19 08:42 10/18/19 09:37 Normal Saline - IV 10/18/19 09:41 1,000 mls/hr ASDIR STA Administration Sodium Chloride 1,000 mls @ 1,000 mls/hr 10/18/19 10:27 10/18/19 11:12 Normal Saline - IV 10/18/19 11:26 1,000 mls/hr ASDIR STA Administration Magnesium Sulfate 1 gm 10/18/19 10:24 10/18/19 11:00 Magnesium Sulfate IVPB 10/18/19 10:25 1 gm ONCE ONE Administration Morphine Sulfate 4 mg 10/18/19 08:50 10/18/19 09:39 Morphine Injection - IVPUSH 10/18/19 08:51 4 mg ONCE ONE Administration Ondansetron HCl 4 mg 10/18/19 08:42 10/18/19 09:38 Zofran Injection IVPUSH 10/18/19 08:43 4 mg ONCE ONE Administration Pantoprazole Sodium 40 mg 10/18/19 08:50 10/18/19 09:40 Protonix Iv IVPUSH 10/18/19 08:51 40 mg ONCE ONE Administration <Torsten Meade - Last Filed: 10/23/19 20:03> Medical Decision Making - Medical Decision Making 10/18/19 10:21 CC: Nausea vomiting poor p.o. intake and epigastric pain since yesterday after being discharged from [facility] for treatment gastritis. Exam: Epigastric and mild right upper quadrant tenderness on exam vital signs stable, noted dry heaving. Plan: Labs, urine, IV fluids, Protonix, morphine and IV fluids 10/18/19 10:27 Laboratory Tests 10/18/19 10/18/19 10/18/19 09:07 09:25 09:25 WBC 11.4 H Hgb 15.3 Hct 44.3 Absolute Neuts (auto) 8.7 H Magnesium 1.7 L Lipase 144 Urine Ketones Trace H Urine Nitrite Positive H Ur Leukocyte Esterase 1+ H Urine WBC (Auto) 6 When questioned about urinary complaints. Patient states this morning did start with mild burning upon urination. Patient denies any discharge and unsure if he had unprotected sex. Patient ordered for second liter of fluid along with gonorrhea chlamydia testing and urine culture 10/18/19 11:41 STD and urine culture sent. Patient states feeling better. Will discharge patient home with g recommendations to continue Cipro as this will cover urinary tract infection along with continuation of treatment for GI infection. Patient also be given a prescription for Zofran <Jennifer Odom - Last Filed: 10/19/19 09:18> - Medical Decision Making The patient was seen and evaluated in conjunction with TRUPTI Odom under my direct supervision, ancillary studies were reviewed. I independently interviewed and evaluated the patient and I agree with the plan as outlined by TRUPTI Odom. 24y F presenting with nausea, vomiting and epigastric pain since yesterday. Pt recently trated for same at [facility]. labs reviewed - noted for +UTI, slightly bump in wbc lkely seocndary to infection. lipase neg pt was written for abx. will ahve her fu with PMD <Torsten Meade - Last Filed: 10/23/19 20:03> Discharge - Discharge Information Problems reviewed: Yes <Jennifer Odom - Last Filed: 10/19/19 09:18> <Torsten Meade - Last Filed: 10/23/19 20:03> - Discharge Information Clinical Impression/Diagnosis: Nausea and vomiting, UTI (urinary tract infection) Condition: Improved Disposition: HOME - Additional Discharge Information Prescriptions: Ondansetron HCl [Zofran] 4 mg PO TID PRN #12 tablet PRN Reason: Nausea And/Or Vomiting - Follow up/Referral Referrals: Katie Xiao MD [Primary Care Provider] - - Patient Discharge Instructions Patient Printed Discharge Instructions: DI for Urinary Tract Infection (UTI), DI for Vomiting -- Adult Additional Instructions: Please avoid spicy greasy or fatty foods while taking this medication. Please take Zofran as needed for nausea. Try having crackers approximately 15 minutes prior to taking your antibiotics. You will be called in regards to your STD testing - Post Discharge Activity
[2019-10-18 10:21] LABS: MAGNESIUM 1.7 mg/dL (1.8-2.4)
[2019-10-18 10:23] LABS: EPI CELLS 4.2 /HPF (0-5/HPF); HYALINE CASTS 45 /lpf (0-8); URINE APPEARANCE CLEAR; URINE BACTERIA 11.5 /hpf (NEGATIVE); URINE BILIRUBIN NEGATIVE (NEGATIVE); URINE COLOR DK YELLOW; URINE GLUCOSE (UA) NEGATIVE (NEGATIVE); URINE KETONE TRACE (NEGATIVE); URINE LEUK ESTERASE 1+ (NEGATIVE); URINE NITRITE POSITIVE (NEGATIVE); URINE PROTEIN TRACE (NEGATIVE); URINE RBC 6 /hpf (0-4); URINE UROBILINOGEN 0.2 mg/dL (0.2-1.0); URINE WBC 6 /hpf (0-5)
[2019-10-18] MEDS ORDERED: MAGNESIUM SULF 50% (8.12 MEQ/2 ML-1 GM VIAL) IVPB ONE (10:24)
[2019-10-18 10:30] LABS: ALBUMIN 4.2 g/dl (3.4-5.0); BILIRUBIN,TOTAL 0.6 mg/dL (0.2-1); BLOOD UREA NITROGEN 14.1 mg/dL (7-18); CALCIUM 9.3 mg/dL (8.5-10.1); CREATININE 0.9 mg/dL (0.55-1.3); POTASSIUM 3.7 mmol/L (3.5-5.1); TOT PROT 7.4 g/dl (6.4-8.2)
[2019-10-18] MEDS ORDERED: MAGNESIUM 1GM/D5W - 2 GM/200 ML IVPB IVPB ONE (10:34)
[2019-10-18 12:07] VITALS: BP 120/56; TEMP 98.2
== END 2019-10-18 12:07 | disposition home or self-care (01) ==
LOC: JER 08:21
PROC: 3E0337Z Introduction of Electrolytic and Water Balance Substance into Peripheral Vein, Percutaneous Approach (ICD-10-PCS; principal; 2019-10-18)
PROC: 3E033GC Introduction of Other Therapeutic Substance into Peripheral Vein, Percutaneous Approach (ICD-10-PCS; 2019-10-18)
PROC: 3E033NZ Introduction of Analgesics, Hypnotics, Sedatives into Peripheral Vein, Percutaneous Approach (ICD-10-PCS; 2019-10-18)
DX: N39.0 Urinary tract infection, site not specified (principal); Z87.19 Personal history of other diseases of the digestive system
CPT/HCPCS: 36415; 80053; 81003; 83690; 83735; 85025; 87086; 87491; 87591; 96361; 96374; 96375; 99282-25; J7030

== ENCOUNTER 2020-05-08 09:58 | Emergency (ER) | payer OTHER ==
[2020-05-08 10:02] VITALS: BMI 35.6
--- NOTE | 2020-05-08 10:30 | PDOC ---
History of Present Illness - General Chief Complaint: Pain Stated Complaint: ABD PAIN Time Seen by Provider: 05/08/20 10:28 - History of Present Illness Initial Comments: 05/08/20 10:29 HPI: 25 y/o M with hx of pancreatitis in 2018 and daily MJ use presenting with epigastric abd pain, nausea and vomiting. Symptoms started 5 days ago and since then he has been to [facility] twice but was DCd after IVF. His pain today is worse and 10/10 non radiating. Reports it feels like same as his previous gastritis/cyclical emesis episodes. 2 days prior to symptoms he smoked heavily hookah and 3-4joints. He has been unable to tolerate diet. Pain is aching and sharp. He denies fever, chills, chest pain, SOB, dysuria, heamturia, diarrhea, sick contacts. PMHx: as noted above ROS: as noted SHx: + tobacco use; no alcohol use; + rec drugs Allergies: NKDA ROS: GENERAL/CONSTITUTIONAL: No fever or chills. No weakness. HEAD, EYES, EARS, NOSE AND THROAT: No change in vision. No ear pain or discharge. No sore throat. CARDIOVASCULAR: No chest pain or shortness of breath RESPIRATORY: No cough, wheezing, or hemoptysis. GASTROINTESTINAL: +nausea, vomiting; no diarrhea or constipation. GENITOURINARY: No dysuria, frequency, or change in urination. MUSCULOSKELETAL: No joint or muscle swelling or pain. No neck or back pain. SKIN: No rash NEUROLOGIC: No headache, vertigo, loss of consciousness, or change in strength/sensation. ENDOCRINE: No increased thirst. No abnormal weight change HEMATOLOGIC/LYMPHATIC: No anemia, easy bleeding, or history of blood clots. ALLERGIC/IMMUNOLOGIC: No hives or skin allergy. PE: GENERAL: Awake, alert, and fully oriented, no acute distress HEAD: No signs of trauma, normocephalic, atraumatic EYES: EOMI, sclera anicteric, conjunctiva clear ENT: Auricles normal inspection, hearing grossly normal, nares patent, oropharynx clear without exudates. Moist mucosa NECK: Normal ROM, no lymphadenopathy LUNGS: No increased work of breathing, symmetrical chest rise, clear to auscultation bilaterally, no wheezes, crackles or rhonchi HEART: Regular rate, regular rhythm, normal S1 and S2, no murmur, peripheral pulses 2+ and equal bilaterally. ABDOMEN: Soft, nondistended, epigastric ttp with guarding, no rebound. No masses. No CVAT MUSCULOSKELETAL: FROM NEUROLOGICAL: Cranial nerves II through XII grossly intact. Normal speech, stable gait, no focal sensorimotor deficits SKIN: Warm, Dry, normal turgor, no rashes or lesions noted Past History - Medical History Allergies/Adverse Reactions: Allergies Allergy/AdvReac Type Severity Reaction Status Date / Time No Known Allergies Allergy Verified 05/08/20 10:02 Home Medications: Ambulatory Orders NK [No Known Home Medication] 01/25/20 Anemia: No Asthma: No Cancer: No COPD: No GI Disorders: Yes (PANCREATITIS) - Immunization History Immunization Up to Date: Yes - Psycho-Social/Smoking History Smoking History: Never smoked Have you smoked in the past 12 months: No Information on smoking cessation initiated: No - Substance Abuse Hx (Audit-C & DAST Scrn) How often the patient has a drink containing alcohol: Never Score: In Men: 4 or > Positive; In Women: 3 or > Positive: 0 Screen Result (Pos requires Nsg. Audit-10AR): Negative In the last yr the pt used illegal drug/Rx for NonMed reason: No Score: Yes response is considered Positive: 0 Screen Result (Positive result requires Nsg. DAST-10): Negative *Physical Exam - Vital Signs Last Vital Signs Temp Pulse Resp BP Pulse Ox 98.2 F 82 19 144/94 100 05/08/20 10:00 05/08/20 10:00 05/08/20 10:00 05/08/20 10:00 05/08/20 10:00 ED Treatment Course - LABORATORY CBC & Chemistry Diagram: 05/08/20 11:11 05/08/20 11:11 Medical Decision Making - Medical Decision Making 05/08/20 14:33 25 y/o M with hx of pancreatitis in 2018 and daily MJ use presenting with ep igastric abd pain, nausea and vomiting similar to previous gastritis and cyclical vomiting episodes. VSS, AF. PE with epigastric ttp. DDx includes panc, gastritis, GE, cyclical vomiting, esophageal perf -cbc, cmp, lipase, ekg, CXR -pepcid, maalox, viscous lido, ivf, ofirmev -reassess 08/29/20 14:34 elevated AST ALT; will proceed with RUQ US 05/08/20 14:34 US with fatty liver stable from before; no evidence of stone or leonor patient pain significantly improved PO challenge and DC discussed at length importance of cessating smoking to prevent symptoms and patient expresses understanding will dc with PCP/GI followup for fatty liver Discharge - Discharge Information Problems reviewed: Yes Clinical Impression/Diagnosis: Abdominal pain, Nausea & vomiting Condition: Improved Disposition: HOME - Follow up/Referral Referrals: Katie Xiao MD [Primary Care Provider] - - Patient Discharge Instructions Patient Printed Discharge Instructions: DI for Abdominal Pain-Adult, DI for Nausea -- Adult Additional Instructions: Additional Instructions: Please return to the emergency department with any new or worsening symptoms or concerns. Please follow up with your primary care physician within 72 hours. Also followup with a GI specialist within 1-2 weeks for evaluation of fatty liver. Dr Ayon's office information is provided in your paperwork Please continue to take the pepcid prescribed from [facility] Please stop smoking hookah and marijuana to prevent future episodes - Post Discharge Activity
[2020-05-08] MEDS ORDERED: ACETAMINOPHEN 1000 MG/100 ML VIAL (NON FORMULARY) IVPB ONE (10:40)
[2020-05-08] MEDS ORDERED: SODIUM CHLORIDE 1,000 ML IV STA (10:40)
[2020-05-08] MEDS ORDERED: FAMOTIDINE 20 MG/50 ML IVPB 20 MG/50 ML MG IVPB ONE ×2 (10:40→10:54)
[2020-05-08] MEDS ORDERED: ONDANSETRON 4 MG/2 ML VIAL IVPUSH ONE (10:40)
[2020-05-08] MEDS ORDERED: MAG HYDROX/AL HYDROX/SIMETH 30 ML UNIT-DOSE CUP PO ONE (10:40)
[2020-05-08] MEDS ORDERED: LIDOCAINE VISCOUS 2% ORAL/TOP 20 ML UNIT-DOSE CUP MM ONE (10:41)
[2020-05-08] MEDS ORDERED: ACETAMINOPHEN INJECTION 100 ML IVPB ONE (10:53)
[2020-05-08] MEDS ORDERED: MAG HYDROX/AL HYDROX/SIMETH 30 ML UNIT-DOSE CUP ONE (10:53)
[2020-05-08] MEDS ORDERED: LIDOCAINE VISCOUS 2% ORAL/TOP 20 ML UNIT-DOSE CUP ONE (10:53)
[2020-05-08 11:34] LABS: BASO % 0.7 % (0-2.0); EOS % 1.8 % (0-4.5); HEMOGLOBIN 15.8 GM/dL (11.7-16.9); LYMPH % 18.8 % (8-40); MCH 28.4 pg (25.7-33.7); MCHC 34.3 g/dl (32.0-35.9); MEAN CELL VOLUME 82.9 fl (80-96); MEAN PLT VOLUME 9.2 fl (7.5-11.1); MONO % 6.9 % (3.8-10.2); NEUT % 71.8 % (42.8-82.8); PLATELET COUNT 326 K/MM3 (134-434); RBC 5.55 M/mm3 (4.00-5.60); RDW 13.2 % (11.9-15.9)
[2020-05-08 12:07] LABS: ALBUMIN 4.3 g/dl (3.4-5.0); BILIRUBIN,TOTAL 0.8 mg/dL (0.2-1); BLOOD UREA NITROGEN 17.8 mg/dL (7-18); CALCIUM 9.3 mg/dL (8.5-10.1); CREATININE 0.9 mg/dL (0.55-1.3); POTASSIUM 3.9 mmol/L (3.5-5.1); TOT PROT 7.8 g/dl (6.4-8.2)
--- NOTE | 2020-05-08 14:08 | PDOC ---
Documentation entered by Nanci Means SCRIBE, acting as scribe for Jolanta Lee MD. Jolanta Lee MD: This documentation has been prepared by the Miguelangel gomez Xhesika, SCRIBE, under my direction and personally reviewed by me in its entirety. I confirm that the documentation accurately reflects all work, treatment, procedures, and medical decision making performed by me. Attending Attestation - Resident Resident Name: TruongLesbetina - ED Attending Attestation I have performed the following: I have examined & evaluated the patient, The case was reviewed & discussed with the resident, I agree w/resident's findings & plan, Exceptions are as noted - HPI HPI: 05/08/20 10:30 24y/o M with a pmh of pancreatitis in 2018 (mid 500s lipase), H.Pylori and chronic marijuana use who presents to the emergency department with 4-5 days of epigastric pain and multiple episodes of emesis. Pt states he was seen at [facility] twice this week for the same, given IV fluids and was dxc with improvement of symptoms. Per the patient, he states that he smokes marijuana. he has had 2 - 3 ct scans in his life time for evaluation of vomiting and abd pain. no known h/o of gallstones. Allergies: NKDA PCP: Katie Gordon 05/08/20 14:06 - Physicial Exam PE: 05/08/20 14:06 awake alert no acute distress lungs are clear bilaterally heart is regular 30 murmurs or gallops abdomen is soft there is mild epigastric tenderness no rebound no guarding negative Figueredo sign remedies are warm well perfused patient is awake alert and oriented x3 skin is warm and dry - Medical Decision Making 05/08/20 14:07 25-year-old male history of previous pancreatitis substance use including daily use here today with nausea vomiting epigastric pain. Patient is been seen twice already this week for the same has had multiple CTs in his lifetime for evaluation of nausea and vomiting. On my exam patient is minimally tender in the epigastric Differential includes cholelithiasis gallstone induced pancreatitis pancreatitis from substance abuse gastritis hyperemesis associated with THC Will perform focused ED ultrasound right upper quadrant to evaluate for gallstones CBC CMP and lipase to rule pancreatitis will hydrate given antiemetics. Discussed the patient concerns for hyperemesis secondary to THC advised that he quit smoking Discharge - Discharge Information Problems reviewed: Yes Clinical Impression/Diagnosis: Abdominal pain, Nausea & vomiting Condition: Improved Disposition: HOME - Additional Discharge Information Prescriptions: Ondansetron [Zofran *Odt*] 4 mg SL TID #5 tab - Follow up/Referral Referrals: Kevin Ayon MD [Staff Physician] - Katie Xiao MD [Primary Care Provider] - - Patient Discharge Instructions Patient Printed Discharge Instructions: DI for Abdominal Pain-Adult, DI for Nausea -- Adult Additional Instructions: Additional Instructions: Please return to the emergency department with any new or worsening symptoms or concerns. Please follow up with your primary care physician within 72 hours. Also followup with a GI specialist within 1-2 weeks for evaluation of fatty liver. Dr Ayon's office information is provided in your paperwork Please continue to take the pepcid prescribed from [facility]. You may buy mylanta/maalox over the counter. I have sent zofran to the pharmacy across the [place]. Take every 8 hours as needed for nausea or vomiting Please stop smoking hookah and marijuana to prevent future episodes - Post Discharge Activity
[2020-05-08 16:00] VITALS: BP 129/88; PULSE 72; TEMP 97.8
--- NOTE | 2020-05-09 12:05 | EKG ---
Test Reason : Blood Pressure : / mmHG Vent. Rate : 064 BPM Atrial Rate : 064 BPM P-R Int : 138 ms QRS Dur : 084 ms QT Int : 394 ms P-R-T Axes : 062 055 042 degrees QTc Int : 406 ms NORMAL SINUS RHYTHM NORMAL ECG WHEN COMPARED WITH ECG OF 23-JAN-2020 11:47, NO SIGNIFICANT CHANGE WAS FOUND Confirmed by RANCHO MYRICK MD ([id number]) on 05/09/2020 12:04:52 PM Referred By: Confirmed By:RANCHO MYRICK MD
== END 2020-05-08 15:34 | disposition home or self-care (01) ==
LOC: JER 09:58
DX: R11.2 Nausea with vomiting, unspecified (principal); R10.9 Unspecified abdominal pain
CPT/HCPCS: 36415; 71045-TC-FY; 76705-TC; 80053; 83690; 85025; 93005; 93010; 99285-25; J0131

== ENCOUNTER 2020-08-09 23:35 | Emergency (ER) | payer OTHER ==
[2020-08-09 23:47] VITALS: TEMP 98.5; BMI 36.6
[2020-08-10] MEDS ORDERED: ONDANSETRON 4 MG/2 ML VIAL IVPUSH ONE
[2020-08-10] MEDS ORDERED: ACETAMINOPHEN 1000 MG/100 ML VIAL (NON FORMULARY) IVPB ONE
[2020-08-10] MEDS ORDERED: FAMOTIDINE 20 MG/50 ML IVPB 20 MG/50 ML MG IVPB ONE (00:01)
[2020-08-10] MEDS ORDERED: MAG HYDROX/AL HYDROX/SIMETH -MYLANTA- ORAL SUSPENSION PO ONE (00:03)
[2020-08-10] MEDS ORDERED: SODIUM CHLORIDE 1,000 ML IV STA ×2 (00:03→02:18)
[2020-08-10] MEDS ORDERED: ONDANSETRON 4 MG/2 ML VIAL ONE (00:18)
[2020-08-10] MEDS ORDERED: ACETAMINOPHEN INJECTION 100 ML IVPB ONE (00:18)
[2020-08-10] MEDS ORDERED: MAG HYDROX/AL HYDROX/SIMETH 30 ML UNIT-DOSE CUP ONE (00:18)
[2020-08-10 00:45] LABS: BASO % 1.1 % (0-2.0); EOS % 1.3 % (0-4.5); HEMOGLOBIN 15.7 GM/dL (11.7-16.9); LYMPH % 24.1 % (8-40); MCH 28.3 pg (25.7-33.7); MEAN CELL VOLUME 83.2 fl (80-96); MONO % 7.4 % (3.8-10.2); NEUT % 66.1 % (42.8-82.8); PLATELET COUNT 343 K/MM3 (134-434); RBC 5.54 M/mm3 (4.00-5.60); WHITE BLOOD COUNT 16.1 K/mm3 (4.0-10.0)
[2020-08-10 00:53] LABS: CHLORIDE 103 mmol/L (98-107); POTASSIUM 3.8 mmol/L (3.5-5.1); SODIUM 139 mmol/L (136-145)
[2020-08-10 00:56] LABS: ALBUMIN 4.3 g/dl (3.4-5.0); ANION GAP 11 MMOL/L (8-16); BLOOD UREA NITROGEN 18.7 mg/dL (7-18); CALCIUM 9.7 mg/dL (8.5-10.1); CO2 25 mmol/L (21-32); GLUCOSE,RANDOM 127 mg/dL (74-106); LIPASE 190 U/L (73-393)
[2020-08-10 00:59] LABS: CREATININE 0.9 mg/dL (0.55-1.3); SGOT/AST 40 U/L (15-37); SGPT/ALT 94 U/L (13-61)
[2020-08-10 01:01] LABS: BILIRUBIN,TOTAL 0.9 mg/dL (0.2-1); TOT PROT 7.9 g/dl (6.4-8.2)
[2020-08-10 01:02] LABS: ALK PHOS 100 U/L (45-117)
[2020-08-10] MEDS ORDERED: KETOROLAC TROMETHAMINE 15 MG/ML VIAL IVPUSH ONE (01:42)
[2020-08-10] MEDS ORDERED: KETOROLAC TROMETHAMINE 15 MG/ML VIAL ONE (01:49)
[2020-08-10] MEDS ORDERED: METOCLOPRAMIDE HCL INJECTION 10 MG/2 ML VIAL IVPB ONE (02:18)
[2020-08-10] MEDS ORDERED: METOCLOPRAMIDE HCL INJECTION 10 MG/2 ML VIAL ONE (02:21)
[2020-08-10 02:38] LABS: PH,URINE 6.5 (5.0-8.0); URINE APPEARANCE CLEAR; URINE BILIRUBIN NEGATIVE (NEGATIVE); URINE COLOR YELLOW; URINE GLUCOSE (UA) NEGATIVE (NEGATIVE); URINE KETONE 2+ (NEGATIVE); URINE LEUK ESTERASE NEGATIVE (NEGATIVE); URINE NITRITE NEGATIVE (NEGATIVE); URINE PROTEIN TRACE (NEGATIVE)
[2020-08-10 04:15] VITALS: BP 120/56; PULSE 74
== END 2020-08-10 04:15 | disposition home or self-care (01) ==
LOC: JER 23:35
PROC: 3E0333Z Introduction of Anti-inflammatory into Peripheral Vein, Percutaneous Approach (ICD-10-PCS; principal; 2020-08-09)
PROC: 3E033GC Introduction of Other Therapeutic Substance into Peripheral Vein, Percutaneous Approach (ICD-10-PCS; 2020-08-09)
PROC: 3E033GC Introduction of Other Therapeutic Substance into Peripheral Vein, Percutaneous Approach (ICD-10-PCS; 2020-08-09)
PROC: 3E0333Z Introduction of Anti-inflammatory into Peripheral Vein, Percutaneous Approach (ICD-10-PCS; 2020-08-09)
PROC: 3E033GC Introduction of Other Therapeutic Substance into Peripheral Vein, Percutaneous Approach (ICD-10-PCS; 2020-08-09)
PROC: 3E033GC Introduction of Other Therapeutic Substance into Peripheral Vein, Percutaneous Approach (ICD-10-PCS; 2020-08-09)
PROC: 3E0337Z Introduction of Electrolytic and Water Balance Substance into Peripheral Vein, Percutaneous Approach (ICD-10-PCS; 2020-08-09)
PROC: 3E0337Z Introduction of Electrolytic and Water Balance Substance into Peripheral Vein, Percutaneous Approach (ICD-10-PCS; 2020-08-09)
DX: R11.2 Nausea with vomiting, unspecified (principal)
CPT/HCPCS: 36415; 80053; 81003; 82550; 82553; 83690; 84484; 85025; 87086; 93005; 93010; 99284-25; C9803; J0131; U0003

== ENCOUNTER 2020-11-04 08:54 | Emergency (ER) | payer OTHER ==
[2020-11-04 09:18] VITALS: TEMP 97.5
[2020-11-04 09:22] VITALS: BMI 33.8
[2020-11-04] MEDS ORDERED: SODIUM CHLORIDE 0.9% 500 ML INFUS.BAG IV ONE (09:30)
[2020-11-04] MEDS ORDERED: ONDANSETRON 4 MG/2 ML VIAL IVPUSH ONE (09:32)
[2020-11-04] MEDS ORDERED: ACETAMINOPHEN 1000 MG/100 ML VIAL (NON FORMULARY) IVPB ONE (09:32)
[2020-11-04] MEDS ORDERED: FAMOTIDINE 20 MG/50 ML IVPB 20 MG/50 ML MG IVPB ONE ×2 (09:32→09:42)
[2020-11-04] MEDS ORDERED: MAG HYDROX/AL HYDROX/SIMETH 30 ML UNIT-DOSE CUP PO ONE (09:32)
[2020-11-04] MEDS ORDERED: ACETAMINOPHEN INJECTION 100 ML IVPB ONE (09:41)
[2020-11-04] MEDS ORDERED: MAG HYDROX/AL HYDROX/SIMETH 30 ML UNIT-DOSE CUP ONE (09:41)
[2020-11-04] MEDS ORDERED: ONDANSETRON 4 MG/2 ML VIAL ONE (09:42)
[2020-11-04 10:14] LABS: BASO % 0.6 % (0-2.0); HEMATOCRIT 43.3 % (35.4-49); HEMOGLOBIN 15.1 GM/dL (11.7-16.9); LYMPH % 18.4 % (8-40); MCH 28.7 pg (25.7-33.7); MCHC 34.8 g/dl (32.0-35.9); MEAN CELL VOLUME 82.3 fl (80-96); MEAN PLT VOLUME 9.4 fl (7.5-11.1); MONO % 4.1 % (3.8-10.2); NEUT % 73.9 % (42.8-82.8); PLATELET COUNT 334 K/MM3 (134-434); RBC 5.26 M/mm3 (4.00-5.60); RDW 13.1 % (11.9-15.9); WHITE BLOOD COUNT 14.2 K/mm3 (4.0-10.0)
[2020-11-04 10:30] LABS: POTASSIUM 4.3 mmol/L (3.5-5.1)
[2020-11-04 10:32] LABS: CALCIUM 9.5 mg/dL (8.5-10.1)
[2020-11-04 10:33] LABS: ALBUMIN 4.3 g/dl (3.4-5.0); BLOOD UREA NITROGEN 19.2 mg/dL (7-18)
[2020-11-04 10:37] LABS: BILIRUBIN,TOTAL 0.4 mg/dL (0.2-1); TOT PROT 7.8 g/dl (6.4-8.2)
[2020-11-04] MEDS ORDERED: HALOPERIDOL LACTATE 5 MG/ML IV ONE (10:43)
[2020-11-04] MEDS ORDERED: HALOPERIDOL LACTATE 5 MG/ML ONE (11:00)
[2020-11-04] MEDS ORDERED: SUCRALFATE 1 GM TABLET (FP) PO ONE (11:42)
[2020-11-04] MEDS ORDERED: SUCRALFATE 1 GM TABLET (FP) ONE (11:46)
[2020-11-04 12:07] VITALS: BP 113/74; PULSE 89
== END 2020-11-04 12:07 | disposition home or self-care (01) ==
LOC: JER 08:54
PROC: 3E0333Z Introduction of Anti-inflammatory into Peripheral Vein, Percutaneous Approach (ICD-10-PCS; principal; 2020-11-04)
PROC: 3E033GC Introduction of Other Therapeutic Substance into Peripheral Vein, Percutaneous Approach (ICD-10-PCS; 2020-11-04)
PROC: 3E033GC Introduction of Other Therapeutic Substance into Peripheral Vein, Percutaneous Approach (ICD-10-PCS; 2020-11-04)
PROC: 3E033GC Introduction of Other Therapeutic Substance into Peripheral Vein, Percutaneous Approach (ICD-10-PCS; 2020-11-04)
DX: R11.15 Cyclical vomiting syndrome unrelated to migraine (principal); R10.13 Epigastric pain
CPT/HCPCS: 36415; 80053; 83690; 85025; 93005; 93010; 99284-25; J0131

== ENCOUNTER 2021-03-16 12:11 | Emergency (ER) | payer OTHER ==
[2021-03-16 12:16] VITALS: BP 139/97; PULSE 77; TEMP 98.3; BMI 36.6
[2021-03-16] MEDS ORDERED: ACETAMINOPHEN 1000 MG/100 ML VIAL (NON FORMULARY) IVPB ONE (13:09)
[2021-03-16] MEDS ORDERED: SODIUM CHLORIDE 0.9% 500 ML INFUS.BAG IV ONE (13:09)
[2021-03-16] MEDS ORDERED: ONDANSETRON 4 MG/2 ML VIAL IVPUSH ONE (13:09)
[2021-03-16] MEDS ORDERED: ACETAMINOPHEN INJECTION 100 ML IVPB ONE (13:18)
[2021-03-16] MEDS ORDERED: ONDANSETRON 4 MG/2 ML VIAL ONE (13:18)
[2021-03-16] MEDS ORDERED: MAG HYDROX/AL HYDROX/SIMETH 30 ML UNIT-DOSE CUP PO ONE (13:32)
[2021-03-16] MEDS ORDERED: FAMOTIDINE 20 MG/50 ML IVPB 20 MG/50 ML MG IVPB ONE ×4 (13:32→16:08)
[2021-03-16] MEDS ORDERED: SUCRALFATE 1 GM TABLET (FP) PO ONE (13:32)
[2021-03-16] MEDS ORDERED: SUCRALFATE 1 GM TABLET (FP) ONE (13:35)
[2021-03-16] MEDS ORDERED: MAG HYDROX/AL HYDROX/SIMETH 30 ML UNIT-DOSE CUP ONE (13:35)
[2021-03-16 13:40] LABS: BASO % 0.7 % (0-2.0); EOS % 1.5 % (0-4.5); HEMATOCRIT 47.8 % (35.4-49); HEMOGLOBIN 16.2 GM/dL (11.7-16.9); LYMPH % 17.6 % (8-40); MCH 28.4 pg (25.7-33.7); MEAN CELL VOLUME 83.5 fl (80-96); MEAN PLT VOLUME 9.1 fl (7.5-11.1); MONO % 7.6 % (3.8-10.2); NEUT % 72.6 % (42.8-82.8); PLATELET COUNT 337 10^3/uL (134-434); RBC 5.72 M/mm3 (4.00-5.60); RDW 13.3 % (11.9-15.9); WHITE BLOOD COUNT 14.4 K/mm3 (4.0-10.0)
[2021-03-16 14:02] LABS: ALBUMIN 4.5 g/dl (3.4-5.0); CALCIUM 9.1 mg/dL (8.5-10.1)
[2021-03-16 14:03] LABS: BLOOD UREA NITROGEN 17.4 mg/dL (7-18)
[2021-03-16 14:05] LABS: CREATININE 0.9 mg/dL (0.55-1.3)
[2021-03-16 14:07] LABS: BILIRUBIN,TOTAL 1.2 mg/dL (0.2-1); TOT PROT 7.8 g/dl (6.4-8.2)
[2021-03-16] MEDS ORDERED: HALOPERIDOL LACTATE 5 MG/ML IM ONE (14:44)
[2021-03-16] MEDS ORDERED: HALOPERIDOL LACTATE 5 MG/ML ONE (15:08)
== END 2021-03-16 17:52 | disposition home or self-care (01) ==
LOC: JER 12:11
PROC: 3E0333Z Introduction of Anti-inflammatory into Peripheral Vein, Percutaneous Approach (ICD-10-PCS; principal; 2021-03-16)
PROC: 3E033GC Introduction of Other Therapeutic Substance into Peripheral Vein, Percutaneous Approach (ICD-10-PCS; 2021-03-16)
PROC: 3E033GC Introduction of Other Therapeutic Substance into Peripheral Vein, Percutaneous Approach (ICD-10-PCS; 2021-03-16)
PROC: 3E033GC Introduction of Other Therapeutic Substance into Peripheral Vein, Percutaneous Approach (ICD-10-PCS; 2021-03-16)
PROC: 3E023GC Introduction of Other Therapeutic Substance into Muscle, Percutaneous Approach (ICD-10-PCS; 2021-03-16)
PROC: 3E033GC Introduction of Other Therapeutic Substance into Peripheral Vein, Percutaneous Approach (ICD-10-PCS; 2021-03-16)
DX: R10.9 Unspecified abdominal pain (principal); R11.2 Nausea with vomiting, unspecified
CPT/HCPCS: 36415; 76705-TC; 80053; 83690; 85025; 93005; 93010; 99284-25; J0131

== ENCOUNTER 2021-09-30 12:11 | Emergency (ER) | payer OTHER ==
[2021-09-30 12:27] VITALS: BP 131/65; PULSE 79; TEMP 97.8; BMI 38.0
[2021-09-30] MEDS ORDERED: SODIUM CHLORIDE 0.9% 500 ML INFUS.BAG IV ONE (12:51)
[2021-09-30] MEDS ORDERED: ACETAMINOPHEN 1000 MG/100 ML BAG IVPB ONE (12:51)
[2021-09-30] MEDS ORDERED: FAMOTIDINE 20 MG/50 ML IVPB 20 MG/50 ML MG IVPB ONE ×2 (12:51→13:19)
[2021-09-30] MEDS ORDERED: METOCLOPRAMIDE HCL INJECTION 10 MG/2 ML VIAL IVPUSH ONE (12:52)
[2021-09-30] MEDS ORDERED: ACETAMINOPHEN INJECTION 100 ML IVPB ONE (13:18)
[2021-09-30] MEDS ORDERED: METOCLOPRAMIDE HCL INJECTION 10 MG/2 ML VIAL ONE (13:18)
[2021-09-30 13:47] LABS: HEMATOCRIT 46.3 % (35.4-49); HEMOGLOBIN 15.9 GM/dL (11.7-16.9); LYMPH % 15.3 % (8-40); MCH 28.1 pg (25.7-33.7); MCHC 34.4 g/dl (32.0-35.9); MEAN CELL VOLUME 81.6 fl (80-96); MEAN PLT VOLUME 9.2 fl (7.5-11.1); MONO % 4.9 % (3.8-10.2); NEUT % 75.8 % (42.8-82.8); PLATELET COUNT 303 10^3/uL (134-434); RBC 5.67 M/mm3 (4.00-5.60); RDW 13.8 % (11.9-15.9); WHITE BLOOD COUNT 13.3 K/mm3 (4.0-10.0)
[2021-09-30 13:49] LABS: EPI CELLS 6 /uL (0-25.1); HYALINE CASTS 3 /uL (0-3.1); URINE APPEARANCE CLEAR; URINE BACTERIA 36 /uL (0-1359); URINE BILIRUBIN NEGATIVE (NEGATIVE); URINE COLOR YELLOW; URINE GLUCOSE (UA) NEGATIVE (NEGATIVE); URINE KETONE 1+ (NEGATIVE); URINE LEUK ESTERASE TRACE (NEGATIVE); URINE NITRITE NEGATIVE (NEGATIVE); URINE PROTEIN 1+ (NEGATIVE); URINE RBC 11 /uL (0-23.9); URINE WBC 10 /uL (0-25.8)
[2021-09-30 14:18] LABS: CALCIUM 9.5 mg/dL (8.5-10.1)
[2021-09-30 14:19] LABS: ALBUMIN 4.4 g/dl (3.4-5.0); BLOOD UREA NITROGEN 17.6 mg/dL (7-18)
[2021-09-30 14:22] LABS: CREATININE 0.9 mg/dL (0.55-1.3)
[2021-09-30 14:23] LABS: BILIRUBIN,TOTAL 0.4 mg/dL (0.2-1); TOT PROT 7.7 g/dl (6.4-8.2)
[2021-09-30] MEDS ORDERED: KETOROLAC TROMETHAMINE 15 MG/ML VIAL IVPUSH ONE (14:59)
[2021-09-30] MEDS ORDERED: HALOPERIDOL LACTATE 5 MG/ML IM ONE (15:20)
[2021-09-30] MEDS ORDERED: KETOROLAC TROMETHAMINE 15 MG/ML VIAL ONE (15:25)
[2021-09-30] MEDS ORDERED: HALOPERIDOL LACTATE 5 MG/ML ONE (15:25)
[2021-09-30] MEDS ORDERED: MAG HYDROX/AL HYDROX/SIMETH 30 ML UNIT-DOSE CUP PO ONE (16:40)
[2021-09-30] MEDS ORDERED: MAG HYDROX/AL HYDROX/SIMETH 30 ML UNIT-DOSE CUP ONE (16:58)
== END 2021-09-30 16:35 | disposition home or self-care (01) ==
LOC: JER 12:11
PROC: 3E023NZ Introduction of Analgesics, Hypnotics, Sedatives into Muscle, Percutaneous Approach (ICD-10-PCS; principal; 2021-09-30)
PROC: 3E0333Z Introduction of Anti-inflammatory into Peripheral Vein, Percutaneous Approach (ICD-10-PCS; 2021-09-30)
PROC: 3E033NZ Introduction of Analgesics, Hypnotics, Sedatives into Peripheral Vein, Percutaneous Approach (ICD-10-PCS; 2021-09-30)
PROC: 3E033GC Introduction of Other Therapeutic Substance into Peripheral Vein, Percutaneous Approach (ICD-10-PCS; 2021-09-30)
PROC: 3E033GC Introduction of Other Therapeutic Substance into Peripheral Vein, Percutaneous Approach (ICD-10-PCS; 2021-09-30)
DX: F12.188 Cannabis abuse with other cannabis-induced disorder (principal); R11.2 Nausea with vomiting, unspecified
CPT/HCPCS: 36415; 80053; 81003; 83690; 85025; 87086; 87491; 87591; 93005; 93010; 99285-25; J0131

== ENCOUNTER 2021-10-02 07:16 | Emergency (ER) | payer OTHER ==
[2021-10-02 07:26] VITALS: BP 150/86; PULSE 91; TEMP 98; BMI 36.3
[2021-10-02] MEDS ORDERED: SODIUM CHLORIDE 0.9% 500 ML INFUS.BAG IV ONE (08:01)
[2021-10-02] MEDS ORDERED: ONDANSETRON 4 MG/2 ML VIAL IVPUSH ONE (08:01)
[2021-10-02] MEDS ORDERED: LORazepam 2 MG/ML SDV VIAL IVPUSH ONE (08:01)
[2021-10-02] MEDS ORDERED: FAMOTIDINE 20 MG/50 ML IVPB 20 MG/50 ML MG IVPB ONE ×2 (08:02→08:06)
[2021-10-02] MEDS ORDERED: HALOPERIDOL LACTATE 5 MG/ML IM ONE (08:03)
[2021-10-02] MEDS ORDERED: HALOPERIDOL LACTATE 5 MG/ML ONE (08:06)
[2021-10-02] MEDS ORDERED: ONDANSETRON 4 MG/2 ML VIAL ONE (08:06)
[2021-10-02 08:24] LABS: EOS % 2.8 % (0-4.5); HEMATOCRIT 44.9 % (35.4-49); HEMOGLOBIN 14.9 GM/dL (11.7-16.9); MCH 27.4 pg (25.7-33.7); MCHC 33.2 g/dl (32.0-35.9); MEAN CELL VOLUME 82.5 fl (80-96); MEAN PLT VOLUME 9.4 fl (7.5-11.1); MONO % 6.7 % (3.8-10.2); NEUT % 65.5 % (42.8-82.8); PLATELET COUNT 320 10^3/uL (134-434); RBC 5.44 M/mm3 (4.00-5.60); RDW 13.6 % (11.9-15.9); WHITE BLOOD COUNT 11.8 K/mm3 (4.0-10.0)
[2021-10-02 08:31] LABS: BLOOD UREA NITROGEN 20.2 mg/dL (7-18); CALCIUM 9.5 mg/dL (8.5-10.1)
[2021-10-02 08:35] LABS: BILIRUBIN,TOTAL 0.7 mg/dL (0.2-1); TOT PROT 7.2 g/dl (6.4-8.2)
[2021-10-02] MEDS ORDERED: MAG HYDROX/AL HYDROX/SIMETH 30 ML UNIT-DOSE CUP PO ONE (08:41)
[2021-10-02] MEDS ORDERED: LIDOCAINE VISCOUS 2% ORAL/TOP 100 ML BOTTLE MM ONE (08:41)
[2021-10-02] MEDS ORDERED: LIDOCAINE VISCOUS 2% ORAL/TOP 15 ML UNIT-DOSE CUP ONE ×2 (08:45→08:54)
[2021-10-02] MEDS ORDERED: MAG HYDROX/AL HYDROX/SIMETH 30 ML UNIT-DOSE CUP ONE (08:46)
== END 2021-10-02 11:49 | disposition home or self-care (01) ==
LOC: JER 07:16
PROC: 3E033GC Introduction of Other Therapeutic Substance into Peripheral Vein, Percutaneous Approach (ICD-10-PCS; principal; 2021-10-02)
DX: R11.2 Nausea with vomiting, unspecified (principal)
CPT/HCPCS: 36415; 80053; 83690; 85025; 96365; 96372; 96375; 99284-25

== ENCOUNTER 2023-03-12 18:06 | Emergency (ER) | payer OTHER ==
[2023-03-12 18:09] VITALS: BP 114/72; PULSE 75; RESP 18; TEMP 99; BMI 28.3
[2023-03-12] MEDS ORDERED: ONDANSETRON 4 MG/2 ML VIAL IVPUSH ONE (19:46)
[2023-03-12] MEDS ORDERED: FAMOTIDINE 20 MG/50 ML IVPB 20 MG/50 ML MG IVPB ONE ×2 (19:46→20:22)
[2023-03-12] MEDS ORDERED: MAG HYDROX/AL HYDROX/SIMETH 30 ML UNIT-DOSE CUP PO ONE (19:46)
[2023-03-12] MEDS ORDERED: LACTATED RINGERS SOLUTION 1000 ML INFUS.BAG IV ONE (20:09)
[2023-03-12] MEDS ORDERED: MAG HYDROX/AL HYDROX/SIMETH 30 ML UNIT-DOSE CUP ONE (20:22)
[2023-03-12] MEDS ORDERED: ONDANSETRON 4 MG/2 ML VIAL ONE ×2 (20:22→20:23)
[2023-03-12 20:33] LABS: HEMATOCRIT 45.6 % (35.4-49); HEMOGLOBIN 15.3 GM/dL (11.7-16.9); MCH 28.8 pg (25.7-33.7); MCHC 33.5 g/dl (32.0-35.9); MEAN CELL VOLUME 85.8 fl (80-96); MEAN PLT VOLUME 9.6 fl (7.5-11.1); PLATELET COUNT 270 10^3/uL (134-434); RBC 5.31 M/mm3 (4.00-5.60); RDW 14.4 % (11.9-15.9); WHITE BLOOD COUNT 13.4 K/mm3 (4.0-10.0)
[2023-03-12 20:46] LABS: POTASSIUM 3.7 mmol/L (3.5-5.1)
[2023-03-12 20:48] LABS: CALCIUM 9.5 mg/dL (8.5-10.1)
[2023-03-12 20:49] LABS: ALBUMIN 4.4 g/dl (3.4-5.0); BLOOD UREA NITROGEN 18.1 mg/dL (7-18)
[2023-03-12 20:52] LABS: CREATININE 0.9 mg/dL (0.55-1.3)
[2023-03-12 20:53] LABS: BILIRUBIN,TOTAL 0.6 mg/dL (0.2-1); TOT PROT 7.8 g/dl (6.4-8.2)
== END 2023-03-12 22:35 | disposition home or self-care (01) ==
LOC: JER 18:06
PROC: 3E033GC Introduction of Other Therapeutic Substance into Peripheral Vein, Percutaneous Approach (ICD-10-PCS; principal; 2023-03-12)
PROC: 3E033GC Introduction of Other Therapeutic Substance into Peripheral Vein, Percutaneous Approach (ICD-10-PCS; 2023-03-12)
DX: R11.2 Nausea with vomiting, unspecified (principal); R10.9 Unspecified abdominal pain; R63.0 Anorexia
CPT/HCPCS: 36415; 80053; 83690; 83735; 85027; 99284-25